=== PATIENT | male | born 1935 | race Caucasian/White ===

== ENCOUNTER 2021-03-06 14:09 | Inpatient (IN) ==
--- NOTE | 2021-03-06 15:45 | Internal Med History&Physical ---
HPI History of Present Illness Patient information: Note initiated : 03/06/21 at 3:44 pm Service Date, if different from initiated Date: [] Patient: Ralf Galicia a 85 y/o M admitted on for fall. Chief Complaint: Fall and weakness History of present illness: Mr. Galicia is a 85 year old M with history of dementia/hypothyroidism who lives with his ailing on hemodialysis.Patient presented to the ER this morning after he fell out of bed and family was unable to help him. 911 was called. Initial work-up was consistent with severe weakness/confused state. Most of the history was obtained from patient's family and EMS. Initial investigations were unremarkable including CT chest abdomen pelvis/spine and head, normal white count however elevated BUN consistent with volume depletion. COVID-19 positive without hypoxia or chest infiltrates. Patient was started on crystalloids. Despite recommendations by ER physician for observation admission family insisted on discharging patient home. Within an hour of reaching home patient again fell out of bed and presents back to the ER. Following acute evaluation hospitalist service was consulted after case management recommended hospitalization until a safe discharge plan is available. At the time of my evaluation patient is accompanied by Leydi. He is notably confused and mumbling unable to provide any history. endorses to history as above. She feels that her self and her family is in no capacity to take care of his needs and would like him to be placed at a facility. On a quick exam there is extensive excoriation along with erythema around the pannus folds/lateral thigh and back. Patient is involuntary tremor noted in both upper extremity review of systems 10 point review system was attempted but could not performed due to patient mental status PFSH PFS All Active Problems (Updated 03/06/21 @ 16:07 by Adeel Bentley DO) Fall (Acute) Candidiasis of skin (Acute) Disc disease, degenerative, cervical (Chronic) Cervical radicular pain (Chronic) Neck pain (Chronic) Tremor of right hand (Chronic) Lumbar disc disease (Chronic) Muscle spasms of neck (Chronic) Myofascial muscle pain (Chronic) Actinic keratosis (Chronic) Pain in right shoulder (Chronic) Hip pain (Chronic) Poor balance (Chronic) Tremor (Chronic) Left lumbar radiculopathy (Chronic) Nightmares (Chronic) Hypothyroidism (Chronic) Degenerative disc disease, cervical (Chronic) Anxiety disorder (Chronic) Fatigue (Chronic) Adult onset diabetes mellitus with ketoacidosis (Chronic) Right wrist pain (Chronic) Knee pain (Chronic) Vitamin D deficiency (Chronic) Irregular heart rate (Chronic) Arthralgia (Chronic) GERD (gastroesophageal reflux disease) (Chronic) Plantar fasciitis (Chronic) Constipation (Chronic) Hypertriglyceridemia (Chronic) Adenomatous colon polyp (Chronic) Barretts esophagus (Chronic) Hyperlipidemia (Chronic) Insomnia (Chronic) Hypertension (Chronic) Nocturia (Chronic) Chronic sinusitis (Chronic) Shortness of breath (Chronic) Medical History Actinic keratosis Adenomatous colon polyp Adult onset diabetes mellitus with ketoacidosis Anxiety disorder Arthralgia Barretts esophagus Cervical radicular pain Chronic sinusitis Constipation Degenerative disc disease, cervical Disc disease, degenerative, cervical Fatigue GERD (gastroesophageal reflux disease) Hip pain Hyperlipidemia Hypertension Hypertriglyceridemia Hypothyroidism Insomnia Irregular heart rate Knee pain Left lumbar radiculopathy Lumbar disc disease xr result, central lbp intermittent wo radic component. LESI not indicated. Muscle spasms of neck may rtc prn Myofascial muscle pain may rtc prn Notified pt that he will be followed by [facility] Neck pain Nightmares Nocturia Pain in right shoulder Plantar fasciitis Poor balance Right wrist pain Shortness of breath Tremor Tremor of right hand Vitamin D deficiency Surgical History History of cataract extraction (~02/2019) bilateral History of cervical spinal surgery History of colonoscopy (~2009) History of hip surgery (~07/2017) left Family History Mother Myocardial infarction, Onset Age: 74 Social History (System 03/06/21 @ 07:06 by Franklin Mccarthy) marital status: occupational status: disabled alcohol intake frequency: does not drink substance use type: does not use MEDS/ALLERGIES Home Medications and Allergies Home Medications Medication Instructions Recorded Confirmed Type levothyroxine 50 mcg tablet 50 mcg PO DAILY #90 tab 10/20/20 03/06/21 Rx donepezil 10 mg tablet 10 mg PO QDAY #30 tab 02/25/21 03/06/21 Rx hydrocodone 10 mg-acetaminophen 1 tab PO Q8HP PRN #90 tab 02/25/21 03/06/21 Rx 325 mg tablet nystatin 1 applic TOPICAL BID #30 g 03/06/21 03/06/21 Rx Allergies Allergy/AdvReac Type Severity Reaction Status Date / Time losartan AdvReac Mild Confusion Verified 03/06/21 19:53 EXAM Constitutional Vitals: Pulse Resp BP Pulse Ox 86 20 216/83 95 03/06/21 15:10 03/06/21 14:16 03/06/21 15:01 03/06/21 15:10 Confused mumbling and unresponsive to verbal commands Head normocephalic Oral cavity dry No ear or nose discharge Eye no subconjunctival pallor, movement symmetrical S1-S2 occasionally irregular Nonlabored breathing Nondistended nontender abdomen, extensive pannus fold erythema/excoriation Upper extremity resting tremor, lower extremity no cyanosis clubbing or joint swelling but extensive area of bruising lateral and posterior thigh Skin no suspicious lesion Psych unresponsive Neuro GCS 1 A/P Narrative A/P Narrative: * COVID-19 acute viral syndrome. Covid PCR positive. No indication for steroids/remdesivir. Consider monoclonal antibody * Severe weakness and fall secondary to above. Aggressive PT OT/gait and safety eval/watch bed observation admit * Volume depletion-start crystalloids and oral fluids * Acute encephalopathy secondary to acute viral illness/volume depletion/underlying dementia * Hypothyroidism continue thyroxine * DJD continue prior home medications * Prophylaxis Heparin Plan * Inpatient admit * Gait and safety eval * Crystalloids * Delirium watch * Maintain fall risk * Pre-existing medical condition management home medication Time Spent With Patient Time: Total time spent is greater than 50% in coordination of care (as documented) at patient's floor/unit and/or counseling patient:
--- NOTE | 2021-03-06 15:57 | Emergency Department Note ---
HPI General Chief complaint: Fall Stated complaint: fall Time Seen by Provider: 03/06/21 15:00 Source: EMS Mode of arrival: EMS Limitations: other History of Present Illness HPI Narrative: Patient is an 85-year-old gentleman who arrives to the emergency department by ambulance accompanied by his complaining of a fall. History is provided by the patient's and is limited by his dementia. The patient had fallen earlier today and I saw him in the emergency department. He appeared to be in a very tenuous living situation and I recommended admission to the hospital for physical therapy and occupational therapy and assessment of home health needs with his . They had declined admission at that time. At that time, he underwent a fairly comprehensive evaluation including CT scan and lab work. He returned home and within a few hours had already fallen again and could not get up. His says she saw him slide out of the bed and landed on his buttocks. She is certain he did not strike his head. He then rolled over onto his abdomen and was unable to lift himself up. His then realized that she would not be able to help him at home so she decided to bring him in for further evaluation. He is otherwise in his usual state of health. He currently has no physical complaints Related Data Home Medications Medication Instructions Recorded Confirmed aspirin 81 mg PO DAILY 05/20/15 03/06/21 sennosides 8.6 mg PO DAILY 05/20/15 03/06/21 docusate sodium 100 mg capsule 100 mg PO BID PRN 09/10/19 03/06/21 fluorouracil 5 % topical cream 1 applic TOPICAL BID 09/10/19 03/06/21 Previous Rx's Medication Instructions Recorded levothyroxine 50 mcg tablet 50 mcg PO DAILY #90 tab 10/20/20 donepezil 10 mg tablet 10 mg PO QDAY #30 tab 02/25/21 hydrocodone 10 mg-acetaminophen 1 tab PO Q8HP PRN #90 tab 02/25/21 325 mg tablet nystatin 1 applic TOPICAL BID #30 g 03/06/21 Allergies Allergy/AdvReac Type Severity Reaction Status Date / Time losartan Allergy Intermediate Confusion Verified 03/06/21 14:19 Review of Systems ROS ROS Narrative: Narrative: Limitations: ROS unobtainable due to patients medical condition [facility] Narrative Patient History Narrative: Narrative: Medical/Surgical/Family History All Active Problems (Updated 03/06/21 @ 16:07 by Adeel Bentley DO) Fall (Acute) Candidiasis of skin (Acute) Disc disease, degenerative, cervical (Chronic) Cervical radicular pain (Chronic) Neck pain (Chronic) Tremor of right hand (Chronic) Lumbar disc disease (Chronic) Muscle spasms of neck (Chronic) Myofascial muscle pain (Chronic) Actinic keratosis (Chronic) Pain in right shoulder (Chronic) Hip pain (Chronic) Poor balance (Chronic) Tremor (Chronic) Left lumbar radiculopathy (Chronic) Nightmares (Chronic) Hypothyroidism (Chronic) Degenerative disc disease, cervical (Chronic) Anxiety disorder (Chronic) Fatigue (Chronic) Adult onset diabetes mellitus with ketoacidosis (Chronic) Right wrist pain (Chronic) Knee pain (Chronic) Vitamin D deficiency (Chronic) Irregular heart rate (Chronic) Arthralgia (Chronic) GERD (gastroesophageal reflux disease) (Chronic) Plantar fasciitis (Chronic) Constipation (Chronic) Hypertriglyceridemia (Chronic) Adenomatous colon polyp (Chronic) Barretts esophagus (Chronic) Hyperlipidemia (Chronic) Insomnia (Chronic) Hypertension (Chronic) Nocturia (Chronic) Chronic sinusitis (Chronic) Shortness of breath (Chronic) Medical History Actinic keratosis Adenomatous colon polyp Adult onset diabetes mellitus with ketoacidosis Anxiety disorder Arthralgia Barretts esophagus Cervical radicular pain Chronic sinusitis Constipation Degenerative disc disease, cervical Disc disease, degenerative, cervical Fatigue GERD (gastroesophageal reflux disease) Hip pain Hyperlipidemia Hypertension Hypertriglyceridemia Hypothyroidism Insomnia Irregular heart rate Knee pain Left lumbar radiculopathy Lumbar disc disease xr result, central lbp intermittent wo radic component. LESI not indicated. Muscle spasms of neck may rtc prn Myofascial muscle pain may rtc prn Notified pt that he will be followed by [facility] Neck pain Nightmares Nocturia Pain in right shoulder Plantar fasciitis Poor balance Right wrist pain Shortness of breath Tremor Tremor of right hand Vitamin D deficiency Surgical History History of cataract extraction (~02/2019) bilateral History of cervical spinal surgery History of colonoscopy (~2009) History of hip surgery (~07/2017) left Family History Mother Myocardial infarction, Onset Age: 74 Social History Smoking Status: Never smoker Alcohol Intake Frequency: does not drink Substance Use: does not use Exam Narrative Narrative: Gen -patient is awake and alert and in no acute distress. HEENT -head is atraumatic. There is no conjunctival pallor or scleral icterus. CV -S1-S2 regular rate and rhythm. Peripheral pulses are palpable. Resp -breathing is nonlabored. Lungs are clear to auscultation bilaterally. There is no cyanosis. GI - Abdomen is soft and nontender to palpation. There is no guarding or rebound tenderness. Derm -skin is warm and dry. MSK -there are multiple superficial abrasions on the patient's upper and lower extremities without any significant underlying bony tenderness Neuro -patient does not answer many questions or follow commands consistently. He repeatedly says "I want to go home." He does have fluent speech. There is no facial asymmetry patient moves all present extremities equally. General Limitations: other Course Vital Signs Vital signs: Vital Signs Pulse Rate 93 H 03/06/21 14:16 Respiratory Rate 20 03/06/21 14:16 Blood Pressure 163/120 03/06/21 14:16 Pulse Oximetry (%) 98 03/06/21 14:16 Pulse Rate 86 03/06/21 15:10 Respiratory Rate 20 03/06/21 14:16 Blood Pressure 216/83 03/06/21 15:01 Pulse Oximetry (%) 95 03/06/21 15:10 [facility] MDM Narrative Medical decision making narrative: Patient presents following a fall. This is a relatively low level fall witnessed by his and there is minimal suspicion for any significant injury. I do not think would benefit from any further imaging at this time. His now understands the need for more home health services and does not think would be safe to take him home. Given his unsteady gait she is agreeable with the plan for admission. I discussed the patient's history examination and diagnostic findings with Dr. Mcclelland, who agrees with the plan of care and accepts admission. Discharge Plan Patient/Caregiver Discharge Instructions Pt seen by SITE SAFETY MANAGER/PA only: No Clinical Impression: Fall Qualifiers: Encounter type: initial encounter Qualified Code(s): W19.XXXA - Unspecified fall, initial encounter Patient Disposition: Xfer As Outpt/Obs ([facility]) Condition: Good Follow up with: Mihaela Thomas ARNP [Primary Care Provider] - Prescriptions: No Action levothyroxine 50 mcg tablet 50 mcg PO DAILY Qty: 90 RF: 1 docusate sodium [Colace] 100 mg capsule 100 mg PO BID PRN (Reason: Constipation) RF: 0 fluorouracil 5 % cream 1 applic TOPICAL BID RF: 0 donepezil [Aricept] 10 mg tablet 10 mg PO QDAY Qty: 30 RF: 2 hydrocodone-acetaminophen 10-325 mg tablet 1 tab PO Q8HP PRN (Reason: Pain) Qty: 90 RF: 0 aspirin 81 MG tablet,chewable 81 mg PO DAILY RF: 0 sennosides 8.6 MG capsule 8.6 mg PO DAILY RF: 0 nystatin 100,000 unit/gram ointment 1 applic topical BID Qty: 30 RF: 0
[2021-03-06] MEDS ORDERED: POLYETHYLENE GLYCOL 3350 17 GM PACKET PO PRN (17:23)
[2021-03-06] MEDS ORDERED: POTASSIUM CHLORIDE 40 MEQ in DEXTROSE 5% IN WATER 500 ML IV PRN (17:23)
[2021-03-06] MEDS ORDERED: MAGNESIUM SULFATE 2 GM/50 ML BAG IV PRN (17:23)
[2021-03-06] MEDS ORDERED: POTASSIUM CHLORIDE 20 MEQ PACKET PO PRN (17:23)
[2021-03-06] MEDS ORDERED: guaiFENesin/CODEINE 10 ML UDC PO PRN (17:23)
[2021-03-06] MEDS ORDERED: ACETAMINOPHEN 650 MG/65 ML BAG IV PRN (17:23)
[2021-03-06] MEDS ORDERED: ONDANSETRON 4 MG/2 ML VIAL IV PRN (17:23)
[2021-03-06] MEDS ORDERED: HYDROcodone/APAP 10/325MG TABLET PO PRN (17:23)
[2021-03-06] MEDS ORDERED: BISACODYL 10 MG SUPP.RECT PR PRN (17:23)
[2021-03-06] MEDS ORDERED: ONDANSETRON 4 MG ODT TABLET SL PRN (17:23)
[2021-03-06] MEDS ORDERED: DOCUSATE SODIUM 100 MG CAPSULE PO PRN (17:23)
[2021-03-06] MEDS: 0.9 % SODIUM CHLORIDE 1,000 ML IV SCH (17:45)
[2021-03-06] MEDS ORDERED: NYSTATIN CRM 1 DOSE TUBE TOPICAL SCH (21:00)
[2021-03-06] MEDS: MELATONIN 3 MG TABLET PO PRN (21:29)
[2021-03-06] MEDS: CYANOCOBALAMIN (VITAMIN B-12) 500 MCG TABLET PO SCH (21:29)
[2021-03-06] MEDS: DOCUSATE SODIUM 100 MG CAPSULE PO SCH (21:29)
[2021-03-06] MEDS: SENNOSIDES/DOCUSATE SODIUM 1 TAB TABLET PO SCH (21:29)
[2021-03-06] MEDS: HEPARIN 5,000 UNIT/ML VIAL SQ SCH (21:29)
[2021-03-06] MEDS: 0.9 % SODIUM CHLORIDE 10 ML SYRINGE IV SCH (21:30)
[2021-03-06] MEDS: FLUOROURACIL 5% TOPICAL SCH (21:30)
[2021-03-06] MEDS: ACETAMINOPHEN 325 MG TABLET PO PRN (23:13)
[2021-03-07] MEDS: 0.9 % SODIUM CHLORIDE 10 ML SYRINGE IV SCH ×3 (04:59→20:22)
[2021-03-07 06:53] LABS: Basophils # (Auto) 0.02 K/mcL (0.00-0.20); Basophils % (Auto) 0.4 % (0.0-2.0); Eosinophils # (Auto) 0.01 K/mcL (0.00-0.70); Eosinophils % (Auto) 0.2 % (0.0-7.0); Hematocrit 43.8 % (41.0-55.0); Hemoglobin 13.8 g/dL (13.5-16.5); Lymphocytes # (Auto) 0.87 K/mcL (1.50-4.80); Lymphocytes % (Auto) 18.2 % (15.0-49.0); Mean Cell Volume 97.6 fL (80.0-100.0); Mean Corpuscular HGB Conc 31.5 g/dL (31.0-36.0); Mean Platelet Volume 11.9 fL (7.4-10.4); Monocytes # (Auto) 0.76 K/mcL (0.10-0.90); Monocytes % (Auto) 15.9 % (1.0-12.0); Neutrophils % (Auto) 65.3 % (38.0-78.0); Platelet Count 121 K/mcL (140-440); RBC 4.49 M/mcL (4.50-5.90); Red Cell Distribution Width 14.2 % (11.5-14.5); WBC 4.8 K/mcL (4.5-11.0)
[2021-03-07] MEDS ORDERED: LORazepam 2 MG/ML VIAL IV ONE (07:00)
[2021-03-07] MEDS ORDERED: VANCOMYCIN PER PHARMACY IV SCH (07:07)
[2021-03-07 07:41] LABS: ALT/SGPT 14 U/L (<40); AST/SGOT 34 U/L (<40); Albumin 3.5 gm/dL (3.2-5.2); Albumin/Globulin Ratio 1.2 (1.0-2.3); Alkaline Phosphatase 63 U/L (39-117); Bilirubin,Direct < 0.2 mg/dL (0-0.3); Bilirubin,Total 0.4 mg/dL (0.1-1.0); Blood Urea Nitrogen 36 mg/dL (8-23); Calcium 8.7 mg/dL (8.6-10.4); Carbon Dioxide 20 mmol/L (22-30); Chloride 108 mmol/L (96-108); Globulin 2.9 gm/dL (2.2-3.7); Glomerular Filtration Rate 69; Glucose 93 mg/dL (70-105); Lactate Dehydrogenase 318 U/L (135-225); Phosphorous 3.6 mg/dL (2.5-4.5); Triglycerides 51 mg/dL (<150); Uric Acid 5.6 mg/dL (2.5-8.0)
[2021-03-07] MEDS: HEPARIN 5,000 UNIT/ML VIAL SQ SCH ×2 (07:44→20:21)
[2021-03-07] MEDS: ASPIRIN 81 MG TAB.CHEW PO SCH (07:44)
[2021-03-07] MEDS: LEVOTHYROXINE 50 MCG TABLET PO SCH (07:45)
[2021-03-07] MEDS: FOLIC ACID 1 MG TABLET PO SCH (07:45)
[2021-03-07] MEDS: DONEPEZIL 10 MG TABLET PO SCH (07:45)
[2021-03-07] MEDS: DOCUSATE SODIUM 100 MG CAPSULE PO SCH ×2 (07:45→20:21)
[2021-03-07] MEDS: THIAMINE 100 MG TABLET PO SCH (07:45)
[2021-03-07] MEDS: CYANOCOBALAMIN (VITAMIN B-12) 500 MCG TABLET PO SCH ×2 (07:45→20:21)
[2021-03-07] MEDS: MULTIVIT,THER IRON,CA,FA & MIN 1 TABLET PO SCH (07:45)
[2021-03-07] MEDS: FLUOROURACIL 5% TOPICAL SCH ×2 (08:38→20:22)
[2021-03-07] MEDS: VANCOMYCIN 1,500 MG in 0.9 % SODIUM CHLORIDE 500 ML IV SCH (08:47)
[2021-03-07] MEDS: NYSTATIN TOPICAL SCH ×2 (08:47→20:22)
[2021-03-07] MEDS ORDERED: SENNOSIDES 8.6 MG PO SCH (09:00)
--- NOTE | 2021-03-07 10:34 | Internal Med Progress Note ---
SUBJECTIVE Subjective Patient information: Note initiated : 03/07/21 at 10:30 am Service Date, if different from initiated Date: [] Patient: Ralf Galicia a 85 y/o M admitted on 03/06/21 for fall. Chief Complaint: [] Interval history: Mr. Galicia is a 85 year old M with history of dementia/hypothyroidism who lives with his ailing on hemodialysis.Patient presented to the ER this morning after he fell out of bed and family was unable to help him. 911 was called. Initial work-up was consistent with severe weakness/confused state. Most of the history was obtained from patient's family and EMS. Initial investigations were unremarkable including CT chest abdomen pelvis/spine and head, normal white count however elevated BUN consistent with volume depletion. COVID-19 positive without hypoxia or chest infiltrates. Patient was started on crystalloids. Despite recommendations by ER physician for observation admission family insisted on discharging patient home. Within an hour of reaching home patient again fell out of bed and presents back to the ER. Following acute evaluation hospitalist service was consulted after case management recommended hospitalization until a safe discharge plan is available. At the time of my evaluation patient is accompanied by Leydi. He is notably confused and mumbling unable to provide any history. endorses to history as above. She feels that her self and her family is in no capacity to take care of his needs and would like him to be placed at a facility. On a quick exam there is extensive excoriation along with erythema around the pannus folds/lateral thigh and back. Patient is involuntary tremor noted in both upper extremity 03/07-2/2+ blood culture for gram-positive cocci. Repeat surveillance cultures pending. Echocardiogram ordered. ID consulted. Started vancomycin. Covid positive. Remains encephalopathic and confused. Renal function improving. Constitutional Vitals: Vital Signs Temp Pulse Resp BP Pulse Ox 100.1 F H 78 13 147/69 93 03/07/21 07:25 03/07/21 08:32 03/07/21 08:32 03/07/21 07:25 03/07/21 08:32 Period Temp Pulse Resp BP Sys/Truong Pulse Ox Last 24 Hr 98.2 F-100.8 F 71-97 13-22 102-239/55-120 93-98 Intake and Output 03/06/21 03/07/21 03/07/21 21:59 05:59 13:59 Intake Total 240 400 Output Total 251 51 52 Balance -11 349 -52 Weight 103.561 kg remains confused Anxious Nonlabored breathing Multiple areas of bruising thigh/lower back Intake & Output: Intake & Output 03/06/21 03/07/21 03/07/21 21:59 05:59 13:59 Intake Total 240 400 Output Total 251 51 52 Balance -11 349 -52 Weight 103.561 kg Intake: Oral 240 400 Output: Void Amount 250 50 50 # of times incontinent of urine 1 1 2 Other: Meal Dinner Percent of Meal Consumed 100% Urine Appearance Clear Sediment Clear Urine Color Straw Straw Dark Yellow Urine Odor Strong Stool Size Large Stool Color Brown Stool Consistency Formed # Voids 1 # Bowel Movements 1 OBJ DATA Labs CBC & Chem 7: 03/07/21 06:00 03/07/21 06:00 Labs: Abnormal Lab Results 03/07/21 03/07/21 06:00 06:00 RBC 4.49 L Plt Count 121 L MPV 11.9 H Yuba % (Auto) 15.9 H Lymph # (Auto) 0.87 L Carbon Dioxide 20 L BUN 36 H Lactate Dehydrogenase 318 H Meds: Medications Acetaminophen (Acetaminophen 325 Mg Tablet) 650 mg PO Q4-6HP PRN; Protocol PRN Reason: Per Pain Protocol/Fever > 101 Last Admin: 03/06/21 23:13 Dose: 650 mg Documented by: Hydrocodone Bitart/Acetaminophen (Hydrocodone/Apap 10/325mg Tablet) 1 tab PO Q8HP PRN; Protocol PRN Reason: Pain Aspirin (Aspirin 81 Mg Tab.Chew) 81 mg PO DAILY [facility] Last Admin: 03/07/21 07:44 Dose: 81 mg Documented by: Bisacodyl (Bisacodyl 10 Mg Supp.Rect) 10 mg KS Q2-3DAYS PRN PRN Reason: Constipation Last Admin: 03/06/21 23:14 Dose: 10 mg Documented by: Cyanocobalamin (Cyanocobalamin (Vitamin B-12) 500 Mcg Tablet) 1,000 mcg PO BID [facility] Stop: 03/11/21 09:01 Last Admin: 03/07/21 07:45 Dose: 1,000 mcg Documented by: Docusate Sodium (Docusate Sodium 100 Mg Capsule) 100 mg PO BID [facility] Last Admin: 03/07/21 07:45 Dose: 100 mg Documented by: Donepezil HCl (Donepezil 10 Mg Tablet) 10 mg PO QDAY [facility] Last Admin: 03/07/21 07:45 Dose: 10 mg Documented by: Folic Acid (Folic Acid 1 Mg Tablet) 1 mg PO DAILY [facility] Last Admin: 03/07/21 07:45 Dose: 1 mg Documented by: Guaifenesin/Codeine Phosphate (Guaifenesin/Codeine 10 Ml Udc) 10 ml PO Q4HP PRN PRN Reason: Cough Heparin Sodium (Porcine) (Heparin 5,000 Unit/Ml Vial) 5,000 unit SQ Q12 [facility] Last Admin: 03/07/21 07:44 Dose: 5,000 unit Documented by: Potassium Chloride 40 meq/ (Dextrose) 520 mls @ 130 mls/hr IV UD PRN PRN Reason: K+ = or < 3.5 Acetaminophen (Ofirmev) 650 mg in 65 mls @ 130 mls/hr IV Q6HP PRN; Protocol PRN Reason: Per Pain Protocol/Fever > 101 Magnesium Sulfate (Magnesium Sulfate) 2 gm in 50 mls @ 50 mls/hr IV UD PRN PRN Reason: MG = or < 1.7 Sodium Chloride (Sodium Chloride 0.9%) 1,000 mls @ 50 mls/hr IV .Q20H [facility] Stop: 03/09/21 05:22 Last Admin: 03/06/21 17:45 Dose: 50 mls/hr Documented by: Vancomycin HCl 1,500 mg/ (Sodium Chloride) 500 mls @ 333.3 mls/hr IV Q24H [facility] Last Admin: 03/07/21 08:47 Dose: 333.3 mls/hr Documented by: Iron Carb/Multivit/Amorita/Folic Acid (Multivit,Ther Iron,Ca,Fa & Min 1 Tablet) 1 tab PO DAILY [facility] Last Admin: 03/07/21 07:45 Dose: 1 tab Documented by: Levothyroxine Sodium (Levothyroxine 50 Mcg Tablet) 50 mcg PO QAMAC [facility] Last Admin: 03/07/21 07:45 Dose: 50 mcg Documented by: Melatonin (Melatonin 3 Mg Tablet) 3 mg PO HSP PRN PRN Reason: Insomnia Last Admin: 03/06/21 21:29 Dose: 3 mg Documented by: Ondansetron HCl (Ondansetron 4 Mg Odt Tablet) 4 mg SL Q4-6HP PRN; Protocol PRN Reason: Nausea And Vomiting Ondansetron HCl (Ondansetron 4 Mg/2 Ml Vial) 4 mg IV Q4-6HP PRN; Protocol PRN Reason: Nausea And Vomiting Fluorouracil 5 % (Cream) 1 dose TOPICAL BID [facility] Last Admin: 03/07/21 08:38 Dose: Not Given Documented by: Nystatin Ointment 1 (Dose Tube) 1 dose TOPICAL BID [facility] Last Admin: 03/07/21 08:47 Dose: 1 dose Documented by: Polyethylene Glycol (Polyethylene Glycol 3350 17 Gm Packet) 17 gm PO DAILYP PRN PRN Reason: Constipation Potassium Chloride (Potassium Chloride 20 Meq Packet) 40 meq PO DAILYP PRN PRN Reason: K+ < 3.5 Senna/Docusate Sodium (Sennosides/Docusate Sodium 1 Tab Tablet) 1 tab PO HS [facility] Last Admin: 03/06/21 21:29 Dose: 1 tab Documented by: Sodium Chloride (0.9 % Sodium Chloride 10 Ml Syringe) 10 ml IV Q8 [facility] Last Admin: 03/07/21 04:59 Dose: Not Given Documented by: Thiamine HCl (Thiamine 100 Mg Tablet) 100 mg PO DAILY [facility] Last Admin: 03/07/21 07:45 Dose: 100 mg Documented by: Vancomycin HCl (Vancomycin Per Pharmacy) 1 order IV UD [facility]; Protocol A/P Narrative A/P Narrative: * COVID-19 acute viral syndrome. Covid PCR positive. No indication for steroids/remdesivir. Consider monoclonal antibody * Gram-positive bacteremia-surveillance cultures/source evaluation/vancomycin/echocardiogram/ID consult * severe weakness and fall secondary to above. Aggressive PT OT/gait and safety eval/watch bed observation admit * Mild PEGGY secondary to volume depletion-improving on crystalloids * Acute encephalopathy secondary to acute viral illness/volume depletion/underlying dementia * Hypothyroidism continue thyroxine * DJD continue prior home medications * Prophylaxis Heparin Plan * Surveillance cultures/echocardiogram/ID consult/source evaluation * Therapies as indicated * Maintain fall risk * Pre-existing medical condition management home medication Time Spent With Patient Time: Total time spent is greater than 50% in coordination of care (as documented) at patient's floor/unit and/or counseling patient: QUALITY VTE Deep Vein Thrombosis/Pulmonary Embolism Present on Admission: No
[2021-03-07] MEDS: 0.9 % SODIUM CHLORIDE 1,000 ML IV SCH (15:27)
[2021-03-07] MEDS: LORazepam 0.5 MG TABLET PO PRN (15:40)
--- NOTE | 2021-03-07 18:14 | Infectious Disease Consult ---
HPI Data of Consult Primary Care Provider: Mihaela Thomas Consult Narrative Patient Information: Note initiated : 03/07/21 at 6:12 pm Service Date, if different from initiated Date: [] Patient: Ralf Galicia 85 y/o M admitted on 03/06/21 for fall. Chief Complaint: [] Ralf is an 85-year-old man who was admitted yesterday March 06 for altered mental status. He has a history of dementia. T-max yesterday 100.8 T-max today is 10 0.1. Currently 99.6. Vancomycin was initiated today as blood cultures from yesterday turn positive. He has had 2 bottles positive for gram-positive cocci in clusters. I am not able to obtain any history from him. I have reviewed with nursing staff. Additionally, he was found to be Covid positive. No previous vaccination. SARS PCR + March 06. His admit white count was 7.6. 87 segs 3% lymphs. UA revealed 1 red cell 2 white cells and 1 squamous epithelial cells. Glucose [address] of the head abdomen pelvis was completed. CT of the chest abdomen pelvis identified renal cysts, sigmoid diverticulosis and glenohumeral degeneration. Diabetes is also listed in his history. An echocardiogram has been ordered. Dr. Oliva asked for consultation to assist with antibiotic recommendations. cc:: CC: Danny Mcclelland Review of Systems Review of systems: Unable to be obtained. PFSH PFSH All Active Problems (Updated 03/07/21 @ 18:30 by Jerry Bates MD) COVID-19 determined by clinical diagnostic criteria (Acute) Dementia (Acute) Bacteremia (Acute) Fever (Acute) Fall (Acute) Candidiasis of skin (Acute) Disc disease, degenerative, cervical (Chronic) Cervical radicular pain (Chronic) Neck pain (Chronic) Tremor of right hand (Chronic) Lumbar disc disease (Chronic) Muscle spasms of neck (Chronic) Myofascial muscle pain (Chronic) Actinic keratosis (Chronic) Pain in right shoulder (Chronic) Hip pain (Chronic) Poor balance (Chronic) Tremor (Chronic) Left lumbar radiculopathy (Chronic) Nightmares (Chronic) Hypothyroidism (Chronic) Degenerative disc disease, cervical (Chronic) Anxiety disorder (Chronic) Fatigue (Chronic) Adult onset diabetes mellitus with ketoacidosis (Chronic) Right wrist pain (Chronic) Knee pain (Chronic) Vitamin D deficiency (Chronic) Irregular heart rate (Chronic) Arthralgia (Chronic) GERD (gastroesophageal reflux disease) (Chronic) Plantar fasciitis (Chronic) Constipation (Chronic) Hypertriglyceridemia (Chronic) Adenomatous colon polyp (Chronic) Barretts esophagus (Chronic) Hyperlipidemia (Chronic) Insomnia (Chronic) Hypertension (Chronic) Nocturia (Chronic) Chronic sinusitis (Chronic) Shortness of breath (Chronic) Medical History Actinic keratosis Adenomatous colon polyp Adult onset diabetes mellitus with ketoacidosis Anxiety disorder Arthralgia Barretts esophagus Cervical radicular pain Chronic sinusitis Constipation Degenerative disc disease, cervical Disc disease, degenerative, cervical Fatigue GERD (gastroesophageal reflux disease) Hip pain Hyperlipidemia Hypertension Hypertriglyceridemia Hypothyroidism Insomnia Irregular heart rate Knee pain Left lumbar radiculopathy Lumbar disc disease xr result, central lbp intermittent wo radic component. LESI not indicated. Muscle spasms of neck may rtc prn Myofascial muscle pain may rtc prn Notified pt that he will be followed by [facility] Neck pain Nightmares Nocturia Pain in right shoulder Plantar fasciitis Poor balance Right wrist pain Shortness of breath Tremor Tremor of right hand Vitamin D deficiency Surgical History History of cataract extraction (~02/2019) bilateral History of cervical spinal surgery History of colonoscopy (~2009) History of hip surgery (~07/2017) left Family History Mother Myocardial infarction, Onset Age: 74 Social History (System 03/06/21 @ 07:06 by Franklin Mccarthy) marital status: occupational status: disabled alcohol intake frequency: does not drink substance use type: does not use MEDS/ALLERGIES Home Medications and Allergies Home Medications Medication Instructions Recorded Confirmed Type levothyroxine 50 mcg tablet 50 mcg PO DAILY #90 tab 10/20/20 03/06/21 Rx donepezil 10 mg tablet 10 mg PO QDAY #30 tab 02/25/21 03/06/21 Rx hydrocodone 10 mg-acetaminophen 1 tab PO Q8HP PRN #90 tab 02/25/21 03/06/21 Rx 325 mg tablet nystatin 1 applic TOPICAL BID #30 g 03/06/21 03/06/21 Rx Allergies Allergy/AdvReac Type Severity Reaction Status Date / Time losartan AdvReac Mild Confusion Verified 03/06/21 19:53 Physical Examination Vital Signs Vital signs: Current temp 99.6. 100.1 earlier today 100.8 yesterday. Temp Pulse Resp BP Pulse Ox 99.6 F H 82 16 129/47 96 03/07/21 15:27 03/07/21 15:27 03/07/21 15:27 03/07/21 15:27 03/07/21 15:27 Additional Exam Additional exam: General: Laying in bed. He does not arouse. HEENT: Eyes closed. Neck seems mildly stiff. No masses appreciated. Pulmonary: Clear anteriorly. Heart: Regular rate and rhythm without murmur. Abdomen: Soft obese can candidal appearing rash in the pannus crease and groin area. Extremities: Lower extremity varicosities. 2+ edema in the left leg 1+ edema in the right leg. Right knee with well-healed surgical scar. He has hand tremors. Results Laboratory Findings CBC and BMP: 03/07/21 06:00 03/07/21 06:00 Abnormal lab findings: Abnormal Labs 03/07/21 03/07/21 06:00 06:00 RBC 4.49 L Plt Count 121 L MPV 11.9 H Lucas % (Auto) 15.9 H Lymph # (Auto) 0.87 L Carbon Dioxide 20 L BUN 36 H Lactate Dehydrogenase 318 H Microbiology: Microbiology 03/06/21 16:16 Nasopharynx SARS-CoV-2, Influenza & RSV (PCR) - Final A/P Assessment and plan (1) Fever: Status: Acute Comment: Ralf is a 85-year-old man with dementia. He was admitted on March 06 with altered mental status. I am not sure on what his baseline level of mental status is. He was not interactive for me today. T-max yesterday 100.8 and blood cultures have turned positive for gram-positive cocci in clusters. Source unknown at this time. He does have significant rash under pannus and groin region consistent with candidiasis. Certainly staph or strep could originate from this region. He has an abrasion over the right lateral hip that does not appear cellulitic but does appear bruised. Vancomycin started today. Pharmacy follow ing levels. Further recommendations to follow depending on culture ID and sensitivity. Repeat blood cultures tomorrow. If staph aureus identified, minimum of 2 weeks of IV therapy. (2) Bacteremia: Status: Acute Comment: Follow-up on blood culture ID and sensitivity. Transthoracic echocardiogram pen ding. Source seems more likely from skin. (3) Candidiasis of skin: Status: Acute Comment: Topical therapy is applied. Consider oral Diflucan therapy if lack of response with topical treatment. (4) Dementia: Status: Acute Comment: Question baseline level. (5) COVID-19 determined by clinical diagnostic criteria: Status: Acute Comment: No previous vaccination. PCR diagnostic test completed. The PCR test can be positive for up to 90 days post exposure. Currently, he is not requiring supplemental O2. Chest CT scan did not identify infiltrate. Unknown if testing represents previous disease or current asymptomatic infection. He is currently in isolation appropriately. Time Spent With Patient Time: Total time spent is greater than 50% in coordination of care (as documented) at patient's floor/unit and/or counseling patient:
[2021-03-07] MEDS: SENNOSIDES/DOCUSATE SODIUM 1 TAB TABLET PO SCH (20:21)
[2021-03-08] MEDS: 0.9 % SODIUM CHLORIDE 10 ML SYRINGE IV SCH ×3 (04:03→20:50)
[2021-03-08 06:27] LABS: Basophils # (Auto) 0.03 K/mcL (0.00-0.20); Basophils % (Auto) 0.4 % (0.0-2.0); Eosinophils # (Auto) 0.15 K/mcL (0.00-0.70); Eosinophils % (Auto) 2.1 % (0.0-7.0); Hematocrit 42.9 % (41.0-55.0); Hemoglobin 13.8 g/dL (13.5-16.5); Lymphocytes # (Auto) 1.45 K/mcL (1.50-4.80); Lymphocytes % (Auto) 20.1 % (15.0-49.0); Mean Cell Volume 97.9 fL (80.0-100.0); Mean Corpuscular HGB Conc 32.2 g/dL (31.0-36.0); Mean Platelet Volume 12.5 fL (7.4-10.4); Monocytes % (Auto) 9.7 % (1.0-12.0); Neutrophils % (Auto) 67.7 % (38.0-78.0); Platelet Count 85 K/mcL (140-440); RBC 4.38 M/mcL (4.50-5.90); Red Cell Distribution Width 14.3 % (11.5-14.5); WBC 7.2 K/mcL (4.5-11.0)
[2021-03-08 06:57] LABS: ALT/SGPT 14 U/L (<40); AST/SGOT 32 U/L (<40); Albumin 3.4 gm/dL (3.2-5.2); Albumin/Globulin Ratio 1.2 (1.0-2.3); Alkaline Phosphatase 58 U/L (39-117); Bilirubin,Direct < 0.2 mg/dL (0-0.3); Bilirubin,Total 0.3 mg/dL (0.1-1.0); Blood Urea Nitrogen 22 mg/dL (8-23); Calcium 8.3 mg/dL (8.6-10.4); Carbon Dioxide 22 mmol/L (22-30); Chloride 108 mmol/L (96-108); Globulin 2.8 gm/dL (2.2-3.7); Glomerular Filtration Rate 78; Glucose 88 mg/dL (70-105); Lactate Dehydrogenase 316 U/L (135-225); Phosphorous 2.6 mg/dL (2.5-4.5); Triglycerides 58 mg/dL (<150); Uric Acid 4.8 mg/dL (2.5-8.0)
[2021-03-08] MEDS: LEVOTHYROXINE 50 MCG TABLET PO SCH (07:03)
[2021-03-08] MEDS: LORazepam 0.5 MG TABLET PO PRN (07:03)
[2021-03-08] MEDS: FLUOROURACIL 5% TOPICAL SCH (07:43)
[2021-03-08] MEDS: NYSTATIN TOPICAL SCH ×2 (08:56→20:50)
[2021-03-08] MEDS: VANCOMYCIN 1,500 MG in 0.9 % SODIUM CHLORIDE 500 ML IV SCH (08:56)
[2021-03-08] MEDS: HEPARIN 5,000 UNIT/ML VIAL SQ SCH (08:56)
[2021-03-08] MEDS: DONEPEZIL 10 MG TABLET PO SCH ×2 (09:00→09:07)
[2021-03-08] MEDS: THIAMINE 100 MG TABLET PO SCH ×2 (09:00→09:08)
[2021-03-08] MEDS: FOLIC ACID 1 MG TABLET PO SCH ×2 (09:01→09:07)
[2021-03-08] MEDS: ASPIRIN 81 MG TAB.CHEW PO SCH ×2 (09:01→09:07)
[2021-03-08] MEDS: CYANOCOBALAMIN (VITAMIN B-12) 500 MCG TABLET PO SCH ×3 (09:01→20:50)
[2021-03-08] MEDS: MULTIVIT,THER IRON,CA,FA & MIN 1 TABLET PO SCH ×2 (09:01→09:07)
[2021-03-08] MEDS: DOCUSATE SODIUM 100 MG CAPSULE PO SCH ×3 (09:01→20:50)
--- NOTE | 2021-03-08 10:27 | Internal Med Progress Note ---
SUBJECTIVE Subjective Patient information: Note initiated : 03/08/21 at 10:25 am Service Date, if different from initiated Date: [] Patient: Ralf Galicia a 85 y/o M admitted on 03/06/21 for fall. Chief Complaint: [] Interval history: Mr. Galicia is a 85 year old M with history of dementia/hypothyroidism who lives with his ailing on hemodialysis.Patient presented to the ER this morning after he fell out of bed and family was unable to help him. 911 was called. Initial work-up was consistent with severe weakness/confused state. Most of the history was obtained from patient's family and EMS. Initial investigations were unremarkable including CT chest abdomen pelvis/spine and head, normal white count however elevated BUN consistent with volume depletion. COVID-19 positive without hypoxia or chest infiltrates. Patient was started on crystalloids. Despite recommendations by ER physician for observation admission family insisted on discharging patient home. Within an hour of reaching home patient again fell out of bed and presents back to the ER. Following acute evaluation hospitalist service was consulted after case management recommended hospitalization until a safe discharge plan is available. At the time of my evaluation patient is accompanied by Leydi. He is notably confused and mumbling unable to provide any history. endorses to history as above. She feels that her self and her family is in no capacity to take care of his needs and would like him to be placed at a facility. On a quick exam there is extensive excoriation along with erythema around the pannus folds/lateral thigh and back. Patient is involuntary tremor noted in both upper extremity 03/07-11/30+ blood culture for gram-positive cocci. Repeat surveillance cultures pending. Echocardiogram ordered. ID consulted. Started vancomycin. Covid positive. Remains encephalopathic and confused. Renal function improving. 03/08-patient remains confused and agitated requiring Ativan. Requiring 3 person assist. Platelets downtrending. Switch to Arixtra. White count 7.2. Currently on room air. Tolerating diet. ID consulted. Await echocardiogram. Constitutional Vitals: Vital Signs Temp Pulse Resp BP Pulse Ox 99.7 F H 75 14 134/41 93 03/08/21 07:33 03/08/21 07:33 03/08/21 07:33 03/08/21 07:33 03/08/21 07:33 Period Temp Pulse Resp BP Sys/Truong Pulse Ox Last 24 Hr 98.9 F-100.1 F 75-94 14-20 126-178/41-80 93-96 Intake and Output 03/07/21 03/08/21 03/08/21 21:59 05:59 13:59 Intake Total 1100 120 Output Total 1 3 2 Balance 1099 117 -2 Weight 103.561 kg Anxious, agitated Nonlabored breathing No lymphedema Intake & Output: Intake & Output 03/07/21 03/08/21 03/08/21 21:59 05:59 13:59 Intake Total 1100 120 Output Total 1 3 2 Balance 1099 117 -2 Weight 103.561 kg Intake: Oral 1100 120 Output: # of times incontinent of urine 1 3 2 Other: Meal Dinner Breakfast Percent of Meal Consumed 50% Refused Feeding Ability Assist with Tray Set Up Total Assistance Nourishment/Supplement name applesauce patient spitting out breakfast and covering his face with blankets OBJ DATA Labs CBC & Chem 7: 03/08/21 05:37 03/08/21 05:37 Labs: Abnormal Lab Results 03/08/21 03/08/21 03/07/21 05:37 05:37 06:00 RBC 4.38 L Plt Count 85 L MPV 12.5 H Hall % (Auto) Lymph # (Auto) 1.45 L Carbon Dioxide 20 L Anion Gap 6.0 L BUN 36 H Calcium 8.3 L Lactate Dehydrogenase 316 H 318 H 03/07/21 06:00 RBC 4.49 L Plt Count 121 L MPV 11.9 H Hall % (Auto) 15.9 H Lymph # (Auto) 0.87 L Carbon Dioxide Anion Gap BUN Calcium Lactate Dehydrogenase Meds: Medications Acetaminophen (Acetaminophen 325 Mg Tablet) 650 mg PO Q4-6HP PRN; Protocol PRN Reason: Per Pain Protocol/Fever > 101 Last Admin: 03/06/21 23:13 Dose: 650 mg Documented by: Hydrocodone Bitart/Acetaminophen (Hydrocodone/Apap 10/325mg Tablet) 1 tab PO Q8HP PRN; Protocol PRN Reason: Pain Aspirin (Aspirin 81 Mg Tab.Chew) 81 mg PO DAILY DEYANIRA Last Admin: 03/08/21 09:07 Dose: Not Given Documented by: Bisacodyl (Bisacodyl 10 Mg Supp.Rect) 10 mg AL Q2-3DAYS PRN PRN Reason: Constipation Last Admin: 03/06/21 23:14 Dose: 10 mg Documented by: Cyanocobalamin (Cyanocobalamin (Vitamin B-12) 500 Mcg Tablet) 1,000 mcg PO BID [facility] Stop: 03/11/21 09:01 Last Admin: 03/08/21 09:07 Dose: Not Given Documented by: Docusate Sodium (Docusate Sodium 100 Mg Capsule) 100 mg PO BID [facility] Last Admin: 03/08/21 09:07 Dose: Not Given Documented by: Donepezil HCl (Donepezil 10 Mg Tablet) 10 mg PO QDAY [facility] Last Admin: 03/08/21 09:07 Dose: Not Given Documented by: Folic Acid (Folic Acid 1 Mg Tablet) 1 mg PO DAILY [facility] Last Admin: 03/08/21 09:07 Dose: Not Given Documented by: Fondaparinux (Fondaparinux Sodium 2.5 Mg/0.5 Ml Syringe) 2.5 mg SQ DAILY [facility] Guaifenesin/Codeine Phosphate (Guaifenesin/Codeine 10 Ml Udc) 10 ml PO Q4HP PRN PRN Reason: Cough Potassium Chloride 40 meq/ (Dextrose) 520 mls @ 130 mls/hr IV UD PRN PRN Reason: K+ = or < 3.5 Acetaminophen (Ofirmev) 650 mg in 65 mls @ 130 mls/hr IV Q6HP PRN; Protocol PRN Reason: Per Pain Protocol/Fever > 101 Magnesium Sulfate (Magnesium Sulfate) 2 gm in 50 mls @ 50 mls/hr IV UD PRN PRN Reason: MG = or < 1.7 Sodium Chloride (Sodium Chloride 0.9%) 1,000 mls @ 50 mls/hr IV .Q20H [facility] Stop: 03/09/21 05:22 Last Admin: 03/07/21 15:27 Dose: 50 mls/hr Documented by: Vancomycin HCl 1,500 mg/ (Sodium Chloride) 500 mls @ 333.3 mls/hr IV Q24H [facility] Last Admin: 03/08/21 08:56 Dose: 333.3 mls/hr Documented by: Iron Carb/Multivit/[employer]/Folic Acid (Multivit,Ther Iron,Ca,Fa & Min 1 Tablet) 1 tab PO DAILY [facility] Last Admin: 03/08/21 09:07 Dose: Not Given Documented by: Levothyroxine Sodium (Levothyroxine 50 Mcg Tablet) 50 mcg PO QAMAC [facility] Last Admin: 03/08/21 07:03 Dose: 50 mcg Documented by: Lorazepam (Lorazepam 0.5 Mg Tablet) 0.5 mg PO Q6HP PRN PRN Reason: ANXIETY/SEDATION Last Admin: 03/08/21 07:03 Dose: 0.5 mg Documented by: Melatonin (Melatonin 3 Mg Tablet) 3 mg PO HSP PRN PRN Reason: Insomnia Last Admin: 03/06/21 21:29 Dose: 3 mg Documented by: Ondansetron HCl (Ondansetron 4 Mg Odt Tablet) 4 mg SL Q4-6HP PRN; Protocol PRN Reason: Nausea And Vomiting Ondansetron HCl (Ondansetron 4 Mg/2 Ml Vial) 4 mg IV Q4-6HP PRN; Protocol PRN Reason: Nausea And Vomiting Nystatin Ointment 1 (Dose Tube) 1 dose TOPICAL BID [facility] Last Admin: 03/08/21 08:56 Dose: 1 dose Documented by: Polyethylene Glycol (Polyethylene Glycol 3350 17 Gm Packet) 17 gm PO DAILYP PRN PRN Reason: Constipation Potassium Chloride (Potassium Chloride 20 Meq Packet) 40 meq PO DAILYP PRN PRN Reason: K+ < 3.5 Senna/Docusate Sodium (Sennosides/Docusate Sodium 1 Tab Tablet) 1 tab PO HS [facility] Last Admin: 03/07/21 20:21 Dose: 1 tab Documented by: Sodium Chloride (0.9 % Sodium Chloride 10 Ml Syringe) 10 ml IV Q8 [facility] Last Admin: 03/08/21 04:03 Dose: Not Given Documented by: Thiamine HCl (Thiamine 100 Mg Tablet) 100 mg PO DAILY [facility] Last Admin: 03/08/21 09:08 Dose: Not Given Documented by: Vancomycin HCl (Vancomycin Per Pharmacy) 1 order IV UD [facility]; Protocol A/P Narrative A/P Narrative: * COVID-19 acute viral syndrome. Covid PCR positive. No indication for steroids/remdesivir. Consider monoclonal antibody * Gram-positive bacteremia-surveillance cultures/source evaluation/vancomycin/echocardiogram/ID consult * Acute delirium secondary to COVID-19. * severe weakness and fall secondary to above. Aggressive PT OT/gait and safety eval/watch bed observation admit * Mild PEGGY secondary to volume depletion resolved on crystalloids * Acute encephalopathy secondary to acute viral illness/volume depletion/underlying dementia * Hypothyroidism continue thyroxine * DJD continue prior home medications * Prophylaxis Heparin Plan * Await echocardiogram/ID consult/source evaluation * Delirium watch/avoid hypnotics, bright lights and frequent reorientation * Maintain fall risk * Pre-existing medical condition management home medication * = Time Spent With Patient Time: Total time spent is greater than 50% in coordination of care (as documented) at patient's floor/unit and/or counseling patient: QUALITY VTE Deep Vein Thrombosis/Pulmonary Embolism Present on Admission: No
--- NOTE | 2021-03-08 12:07 | Internal Med Progress Note ---
SUBJECTIVE Subjective Patient information: Note initiated : 03/09/21 at 11:57 am Service Date, if different from initiated Date: [] Patient: Ralf Galicia a 85 y/o M admitted on 03/06/21 for fall. Chief Complaint: [] Interval history: Mr. Galicia is a 85 year old M with history of dementia/hypothyroidism who lives with his ailing on hemodialysis. Patient presented to the ER this morning he fell out of bed and family was unable to help him. 911 was called. Initial work-up was consistent with severe weakness/confused state. Most of the history was obtained from patient's family and EMS. Initial investigations were unremarkable including CT chest abdomen pelvis/spine and head, normal white count however elevated BUN consistent with volume depletion. COVID-19 positive without hypoxia or chest infiltrates. Patient was started on crystalloids. Despite recommendations by ER physician for observation admission family insisted on discharging patient home. Within an hour of reaching home patient again fell out of bed and presents back to the ER. Following acute evaluation hospitalist service was consulted after case management recommended hospitalization until a safe discharge plan is available. He is notably confused and mumbling unable to provide any history. endorses to history as above. She felt that her self and her family is in no capacity to take care of his needs and would like him to be placed at a facility. On a quick exam there is extensive excoriation along with erythema around the pannus folds/lateral thigh and back. Patient is involuntary tremor noted in both upper extremity 03/07-2/2+ blood culture for gram-positive cocci. Repeat surveillance cultures pending. Echocardiogram ordered. ID consulted. Started vancomycin. Covid positive. Remains encephalopathic and confused. Renal function improving. 03/08-patient remains confused and agitated requiring Ativan. Requiring 3 person assist. Platelets downtrending. Switch to Arixtra. White count 7.2. Currently on room air. Tolerating diet. ID consulted. Await echocardiogram. 03/09-started low dose seroquel for agitation, discontinued ativan. Agitation improved after receiving seroquel. Awaiting culture results and ECHO. Head: Atraumatic, normal inspection. Eyes: normal appearance, no scleral icterus. Neck: full ROM Respiratory: no respiratory distress. Cardiovascular: normal rate and rhythm, S1, S2. GI/Abdominal: soft, nontender, no guarding. Extremities: full range of motion, nontender. Neurological: CN II-XII intact, intact motor, intact sensation. Psychiatric: normal mood. Skin: warm, normal color Constitutional Vitals: Vital Signs Temp Pulse Resp BP Pulse Ox 99.7 F H 75 14 134/41 93 03/08/21 07:33 03/08/21 07:33 03/08/21 07:33 03/08/21 07:33 03/08/21 07:33 Period Temp Pulse Resp BP Sys/Truong Pulse Ox Last 24 Hr 98.9 F-100.1 F 75-94 14-20 129-178/41-77 93-96 Intake and Output 03/07/21 03/08/21 03/08/21 21:59 05:59 13:59 Intake Total 1100 120 500 Output Total 1 3 2 Balance 1099 117 498 Weight 103.561 kg Intake & Output: Intake & Output 03/07/21 03/08/21 03/08/21 21:59 05:59 13:59 Intake Total 1100 120 500 Output Total 1 3 2 Balance 1099 117 498 Weight 103.561 kg Intake: IV 500 Vancomycin 1,500 mg In Sodium 500 Chloride 0.9% 500 ml @ 333.3 mls/hr IV Q24H [facility] Rx#: [id number] Oral 1100 120 Output: # of times incontinent of urine 1 3 2 Other: Meal Dinner Breakfast Percent of Meal Consumed 50% Refused Feeding Ability Assist with Tray Set Up Total Assistance Nourishment/Supplement name applesauce patient spitting out breakfast and covering his face with blankets OBJ DATA Labs CBC & Chem 7: 03/09/21 08:00 03/09/21 07:25 Labs: Abnormal Lab Results 03/08/21 03/08/21 03/07/21 05:37 05:37 06:00 RBC 4.38 L Plt Count 85 L MPV 12.5 H [place] % (Auto) Lymph # (Auto) 1.45 L Carbon Dioxide 20 L Anion Gap 6.0 L BUN 36 H Calcium 8.3 L Lactate Dehydrogenase 316 H 318 H 03/07/21 06:00 RBC 4.49 L Plt Count 121 L MPV 11.9 H [place] % (Auto) 15.9 H Lymph # (Auto) 0.87 L Carbon Dioxide Anion Gap BUN Calcium Lactate Dehydrogenase Meds: Medications Acetaminophen (Acetaminophen 325 Mg Tablet) 650 mg PO Q4-6HP PRN; Protocol PRN Reason: Per Pain Protocol/Fever > 101 Last Admin: 03/06/21 23:13 Dose: 650 mg Documented by: Hydrocodone Bitart/Acetaminophen (Hydrocodone/Apap 10/325mg Tablet) 1 tab PO Q8HP PRN; Protocol PRN Reason: Pain Aspirin (Aspirin 81 Mg Tab.Chew) 81 mg PO DAILY [facility] Last Admin: 03/08/21 09:07 Dose: Not Given Documented by: Bisacodyl (Bisacodyl 10 Mg Supp.Rect) 10 mg MD Q2-3DAYS PRN PRN Reason: Constipation Last Admin: 03/06/21 23:14 Dose: 10 mg Documented by: Cyanocobalamin (Cyanocobalamin (Vitamin B-12) 500 Mcg Tablet) 1,000 mcg PO BID [facility] Stop: 03/11/21 09:01 Last Admin: 03/08/21 09:07 Dose: Not Given Documented by: Docusate Sodium (Docusate Sodium 100 Mg Capsule) 100 mg PO BID [facility] Last Admin: 03/08/21 09:07 Dose: Not Given Documented by: Donepezil HCl (Donepezil 10 Mg Tablet) 10 mg PO QDAY [facility] Last Admin: 03/08/21 09:07 Dose: Not Given Documented by: Folic Acid (Folic Acid 1 Mg Tablet) 1 mg PO DAILY [facility] Last Admin: 03/08/21 09:07 Dose: Not Given Documented by: Fondaparinux (Fondaparinux Sodium 2.5 Mg/0.5 Ml Syringe) 2.5 mg SQ DAILY [facility] Guaifenesin/Codeine Phosphate (Guaifenesin/Codeine 10 Ml Udc) 10 ml PO Q4HP PRN PRN Reason: Cough Potassium Chloride 40 meq/ (Dextrose) 520 mls @ 130 mls/hr IV UD PRN PRN Reason: K+ = or < 3.5 Acetaminophen (Ofirmev) 650 mg in 65 mls @ 130 mls/hr IV Q6HP PRN; Protocol PRN Reason: Per Pain Protocol/Fever > 101 Magnesium Sulfate (Magnesium Sulfate) 2 gm in 50 mls @ 50 mls/hr IV UD PRN PRN Reason: MG = or < 1.7 Sodium Chloride (Sodium Chloride 0.9%) 1,000 mls @ 50 mls/hr IV .Q20H [facility] Stop: 03/09/21 05:22 Last Admin: 03/07/21 15:27 Dose: 50 mls/hr Documented by: Vancomycin HCl 1,500 mg/ (Sodium Chloride) 500 mls @ 333.3 mls/hr IV Q24H [facility] Last Infusion: 03/08/21 10:55 Dose: Infused Documented by: Iron Carb/Multivit/Solution Developer/Folic Acid (Multivit,Ther Iron,Ca,Fa & Min 1 Tablet) 1 tab PO DAILY [facility] Last Admin: 03/08/21 09:07 Dose: Not Given Documented by: Levothyroxine Sodium (Levothyroxine 50 Mcg Tablet) 50 mcg PO QAMAC [facility] Last Admin: 03/08/21 07:03 Dose: 50 mcg Documented by: Lorazepam (Lorazepam 0.5 Mg Tablet) 0.5 mg PO Q6HP PRN PRN Reason: ANXIETY/SEDATION Last Admin: 03/08/21 07:03 Dose: 0.5 mg Documented by: Melatonin (Melatonin 3 Mg Tablet) 3 mg PO HSP PRN PRN Reason: Insomnia Last Admin: 03/06/21 21:29 Dose: 3 mg Documented by: Ondansetron HCl (Ondansetron 4 Mg Odt Tablet) 4 mg SL Q4-6HP PRN; Protocol PRN Reason: Nausea And Vomiting Ondansetron HCl (Ondansetron 4 Mg/2 Ml Vial) 4 mg IV Q4-6HP PRN; Protocol PRN Reason: Nausea And Vomiting Nystatin Ointment 1 (Dose Tube) 1 dose TOPICAL BID [facility] Last Admin: 03/08/21 08:56 Dose: 1 dose Documented by: Polyethylene Glycol (Polyethylene Glycol 3350 17 Gm Packet) 17 gm PO DAILYP PRN PRN Reason: Constipation Potassium Chloride (Potassium Chloride 20 Meq Packet) 40 meq PO DAILYP PRN PRN Reason: K+ < 3.5 Senna/Docusate Sodium (Sennosides/Docusate Sodium 1 Tab Tablet) 1 tab PO HS [facility] Last Admin: 03/07/21 20:21 Dose: 1 tab Documented by: Sodium Chloride (0.9 % Sodium Chloride 10 Ml Syringe) 10 ml IV Q8 [facility] Last Admin: 03/08/21 04:03 Dose: Not Given Documented by: Thiamine HCl (Thiamine 100 Mg Tablet) 100 mg PO DAILY [facility] Last Admin: 03/08/21 09:08 Dose: Not Given Documented by: Vancomycin HCl (Vancomycin Per Pharmacy) 1 order IV UD [facility]; Protocol A/P Narrative A/P Narrative: Assessment: 85-year-old male history of hypothyroidism, cognitive impairment presented to the ED a couple times after falls at home. Family was unable to care for the patient at home. The patient was encephalopathic on admission, COVID-19 PCR positive, soon after admission, 2 out of 2 blood cultures resulted positive for gram-positive bacteremia. The patient was started on IV Vancomycin. #Gram-positive bacteremia vs skin contaminant-surveillance cultures/source evaluation/vancomycin/echocardiogram/ID following #Covid PCR positive-could reflect prior illness vs asymptomatic illness #Dementia with behavioral disturbances #Generalized weakness #Resolved mild prerenal PEGGY #Hypothyroidism: stable TSH #Degenerative disc disease Plan Start low dose Seroquel prn, discontinue prn Ativan and Hydrocodone. Following cultures/echocardiogram/ID consult/source evaluation Delirium precautions/avoid hypnotics, bright lights and frequent reorientation Pre-existing medical condition management home medication PT following Discharge planning Time Spent With Patient Time: Total time spent is greater than 50% in coordination of care (as documented) at patient's floor/unit and/or counseling patient: QUALITY VTE Deep Vein Thrombosis/Pulmonary Embolism Present on Admission: No
--- NOTE | 2021-03-08 13:37 | XRay Report ---
HISTORY: Recent fall, evaluate for interval change FINDINGS: Heart is mildly enlarged. There is asymmetric enlargement of the pulmonary vasculature, right side greater than left. There is no consolidating infiltrate, mass or pleural effusion. Aorta is mildly tortuous. No pleural effusion is present. Severe degenerative changes are present in both shoulders. No fracture is seen. Comparison with the recent chest CT done on 03/06/21 shows the cardiomegaly is unchanged. The prominence of the pulmonary vascular markings has become worse. IMPRESSION: Mild cardiomegaly with asymmetric mild pulmonary vascular congestion Interpreted and Authenticated by: Aureliano Laboy 03/08/21
[2021-03-08] MEDS: 0.9 % SODIUM CHLORIDE 1,000 ML IV SCH (14:00)
[2021-03-08] MEDS: SENNOSIDES/DOCUSATE SODIUM 1 TAB TABLET PO SCH (20:50)
[2021-03-09] MEDS: LORazepam 0.5 MG TABLET PO PRN ×2 (00:50→07:48)
[2021-03-09] MEDS: 0.9 % SODIUM CHLORIDE 10 ML SYRINGE IV SCH ×3 (04:32→22:47)
[2021-03-09] MEDS: LEVOTHYROXINE 50 MCG TABLET PO SCH (07:42)
[2021-03-09] MEDS ORDERED: OLANZapine 10 MG VIAL IM PRN (09:11)
[2021-03-09 09:17] LABS: Basophils # (Auto) 0.02 K/mcL (0.00-0.20); Basophils % (Auto) 0.5 % (0.0-2.0); Eosinophils # (Auto) 0.04 K/mcL (0.00-0.70); Eosinophils % (Auto) 0.9 % (0.0-7.0); Hematocrit 44.1 % (41.0-55.0); Hemoglobin 13.9 g/dL (13.5-16.5); Lymphocytes # (Auto) 1.06 K/mcL (1.50-4.80); Mean Cell Volume 97.6 fL (80.0-100.0); Mean Corpuscular HGB Conc 31.5 g/dL (31.0-36.0); Mean Platelet Volume 12.1 fL (7.4-10.4); Monocytes # (Auto) 0.46 K/mcL (0.10-0.90); Monocytes % (Auto) 10.4 % (1.0-12.0); Neutrophils % (Auto) 64.2 % (38.0-78.0); Platelet Count 111 K/mcL (140-440); RBC 4.52 M/mcL (4.50-5.90); Red Cell Distribution Width 13.9 % (11.5-14.5); WBC 4.4 K/mcL (4.5-11.0)
[2021-03-09] MEDS ORDERED: QUEtiapine 25 MG TABLET PO ONE ×3 (09:33→23:52)
[2021-03-09] MEDS: ASPIRIN 81 MG TAB.CHEW PO SCH (10:44)
[2021-03-09] MEDS: DOCUSATE SODIUM 100 MG CAPSULE PO SCH ×2 (10:44→22:34)
[2021-03-09] MEDS: DONEPEZIL 10 MG TABLET PO SCH (10:44)
[2021-03-09] MEDS: MULTIVIT,THER IRON,CA,FA & MIN 1 TABLET PO SCH (10:45)
[2021-03-09] MEDS: CYANOCOBALAMIN (VITAMIN B-12) 500 MCG TABLET PO SCH ×2 (10:45→22:45)
[2021-03-09] MEDS: FOLIC ACID 1 MG TABLET PO SCH (10:45)
[2021-03-09] MEDS: THIAMINE 100 MG TABLET PO SCH (10:45)
[2021-03-09] MEDS: FONDAPARINUX SODIUM 2.5 MG/0.5 ML SYRINGE SQ SCH (10:46)
[2021-03-09 11:40] LABS: ALT/SGPT 17 U/L (<40); AST/SGOT 37 U/L (<40); Albumin 3.4 gm/dL (3.2-5.2); Albumin/Globulin Ratio 1.2 (1.0-2.3); Alkaline Phosphatase 60 U/L (39-117); Bilirubin,Direct < 0.2 mg/dL (0-0.3); Bilirubin,Total 0.3 mg/dL (0.1-1.0); Blood Urea Nitrogen 17 mg/dL (8-23); Calcium 8.6 mg/dL (8.6-10.4); Carbon Dioxide 22 mmol/L (22-30); Chloride 103 mmol/L (96-108); Globulin 2.9 gm/dL (2.2-3.7); Glomerular Filtration Rate 69; Glucose 101 mg/dL (70-105); Lactate Dehydrogenase 319 U/L (135-225); Phosphorous 2.1 mg/dL (2.5-4.5); Triglycerides 79 mg/dL (<150); Uric Acid 4.3 mg/dL (2.5-8.0)
[2021-03-09] MEDS: VANCOMYCIN 1,500 MG in 0.9 % SODIUM CHLORIDE 500 ML IV SCH ×3 (13:12→22:33)
[2021-03-09] MEDS: NYSTATIN TOPICAL SCH ×2 (13:52→22:48)
[2021-03-09] MEDS ORDERED: QUEtiapine 25 MG TABLET PO PRN (15:04)
[2021-03-09] MEDS: CARBIDOPA/LEVODOPA 25/100 TABLET PO SCH (21:15)
[2021-03-09] MEDS: SENNOSIDES/DOCUSATE SODIUM 1 TAB TABLET PO SCH (22:34)
[2021-03-09] MEDS: MELATONIN 3 MG TABLET PO PRN (22:43)
[2021-03-09] MEDS: ACETAMINOPHEN 325 MG TABLET PO PRN (22:43)
[2021-03-10] MEDS ORDERED: QUEtiapine 25 MG TABLET ONE (00:11)
[2021-03-10] MEDS: 0.9 % SODIUM CHLORIDE 10 ML SYRINGE IV SCH ×3 (04:19→20:48)
[2021-03-10 07:33] LABS: ALT/SGPT < 5 U/L (<40); AST/SGOT 34 U/L (<40); Albumin 3.1 gm/dL (3.2-5.2); Albumin/Globulin Ratio 1.1 (1.0-2.3); Alkaline Phosphatase 56 U/L (39-117); Bilirubin,Direct < 0.2 mg/dL (0-0.3); Bilirubin,Total 0.4 mg/dL (0.1-1.0); Blood Urea Nitrogen 13 mg/dL (8-23); Calcium 8.4 mg/dL (8.6-10.4); Carbon Dioxide 22 mmol/L (22-30); Chloride 106 mmol/L (96-108); Globulin 2.7 gm/dL (2.2-3.7); Glomerular Filtration Rate 69; Glucose 82 mg/dL (70-105); Lactate Dehydrogenase 279 U/L (135-225); Phosphorous 2.4 mg/dL (2.5-4.5); Triglycerides 63 mg/dL (<150); Uric Acid 4.1 mg/dL (2.5-8.0)
[2021-03-10 08:42] LABS: Basophils # (Auto) 0.01 K/mcL (0.00-0.20); Basophils % (Auto) 0.2 % (0.0-2.0); Eosinophils # (Auto) 0.03 K/mcL (0.00-0.70); Eosinophils % (Auto) 0.7 % (0.0-7.0); Hematocrit 42.6 % (41.0-55.0); Lymphocytes # (Auto) 0.75 K/mcL (1.50-4.80); Lymphocytes % (Auto) 18.2 % (15.0-49.0); Mean Cell Volume 94.9 fL (80.0-100.0); Mean Corpuscular HGB Conc 32.9 g/dL (31.0-36.0); Mean Platelet Volume 11.7 fL (7.4-10.4); Monocytes % (Auto) 9.7 % (1.0-12.0); Neutrophils % (Auto) 71.2 % (38.0-78.0); Platelet Count 108 K/mcL (140-440); RBC 4.49 M/mcL (4.50-5.90); Red Cell Distribution Width 13.6 % (11.5-14.5); WBC 4.1 K/mcL (4.5-11.0)
[2021-03-10] MEDS: THIAMINE 100 MG TABLET PO SCH (09:13)
[2021-03-10] MEDS: DONEPEZIL 10 MG TABLET PO SCH (09:13)
[2021-03-10] MEDS: CYANOCOBALAMIN (VITAMIN B-12) 500 MCG TABLET PO SCH ×2 (09:13→20:44)
[2021-03-10] MEDS: LEVOTHYROXINE 50 MCG TABLET PO SCH (09:13)
[2021-03-10] MEDS: FOLIC ACID 1 MG TABLET PO SCH (09:13)
[2021-03-10] MEDS: QUEtiapine 25 MG TABLET PO PRN (09:13)
[2021-03-10] MEDS: MULTIVIT,THER IRON,CA,FA & MIN 1 TABLET PO SCH (09:13)
[2021-03-10] MEDS: DOCUSATE SODIUM 100 MG CAPSULE PO SCH ×2 (09:14→20:44)
[2021-03-10] MEDS: ASPIRIN 81 MG TAB.CHEW PO SCH (09:14)
[2021-03-10] MEDS: CARBIDOPA/LEVODOPA 25/100 TABLET PO SCH ×3 (09:14→20:44)
[2021-03-10] MEDS: FONDAPARINUX SODIUM 2.5 MG/0.5 ML SYRINGE SQ SCH (09:14)
[2021-03-10] MEDS: NYSTATIN TOPICAL SCH ×2 (11:15→20:46)
[2021-03-10] MEDS: NEUTRA PHOS 1 PACKET PO SCH ×2 (11:16→20:44)
[2021-03-10] MEDS: VANCOMYCIN 1,500 MG in 0.9 % SODIUM CHLORIDE 500 ML IV SCH (11:17)
--- NOTE | 2021-03-10 11:30 | Internal Med Progress Note ---
SUBJECTIVE Subjective Patient information: Note initiated : 03/10/21 at 11:28 am Service Date, if different from initiated Date: [] Patient: Ralf Galicia a 85 y/o M admitted on 03/07/21 for fall. Chief Complaint: [] Interval history: Mr. Galicia is a 85 year old M with history of dementia/hypothyroidism who lives with his ailing on hemodialysis. Patient presented to the ER this morning he fell out of bed and family was unable to help him. 911 was called. Initial work-up was consistent with severe weakness/confused state. Most of the history was obtained from patient's family and EMS. Initial investigations were unremarkable including CT chest abdomen pelvis/spine and head, normal white count however elevated BUN consistent with volume depletion. COVID-19 positive without hypoxia or chest infiltrates. Patient was started on crystalloids. Despite recommendations by ER physician for observation admission family insisted on discharging patient home. Within an hour of reaching home patient again fell out of bed and presents back to the ER. Following acute evaluation hospitalist service was consulted after case management recommended hospitalization until a safe discharge plan is available. He is notably confused and mumbling unable to provide any history. endorses to history as above. She felt that her self and her family is in no capacity to take care of his needs and would like him to be placed at a facility. On a quick exam there is extensive excoriation along with erythema around the pannus folds/lateral thigh and back. Patient is involuntary tremor noted in both upper extremity 03/07-2/2+ blood culture for gram-positive cocci. Repeat surveillance cultures pending. Echocardiogram ordered. ID consulted. Started vancomycin. Covid positive. Remains encephalopathic and confused. Renal function improving. 03/08-patient remains confused and agitated requiring Ativan. Requiring 3 person assist. Platelets downtrending. Switch to Arixtra. White count 7.2. Currently on room air. Tolerating diet. ID consulted. Await echocardiogram. 03/09-started low dose seroquel for agitation, discontinued ativan. Agitation improved after receiving seroquel. Awaiting culture results and ECHO. 03/10-reviewed all blood cultures showing 1/2 positive cultures on 03/06 for coag negative staph which is probably a contaminant. Discussed with ID, recommended that we could discontinue Vancomycin IV now. Started lisinopril for elevated blood pressure. Trial of Sinemet for tremors seems to have benefited the patient-tremors could be from Parkinson's disease however the patient will need to see neurology after discharge for a formal evaluation. Head: Atraumatic, normal inspection. Eyes: normal appearance, no scleral icterus. Neck: full ROM Respiratory: no respiratory distress. Cardiovascular: normal rate and rhythm, S1, S2. GI/Abdominal: soft, nontender, no guarding. Extremities: full range of motion, nontender. Neurological: CN II-XII intact, intact motor, intact sensation. Psychiatric: normal mood. Skin: warm, normal color Constitutional Vitals: Vital Signs Temp Pulse Resp BP Pulse Ox 98.8 F 85 20 188/103 95 03/10/21 08:00 03/10/21 08:00 03/10/21 08:00 03/10/21 08:00 03/10/21 08:00 Period Temp Pulse Resp BP Sys/Truong Pulse Ox Last 24 Hr 98.8 F-99.5 F 85-101 20-24 142-188/57-103 93-95 Intake and Output 03/09/21 03/10/21 03/10/21 21:59 05:59 13:59 Intake Total 920 800 Output Total 100 428 Balance 820 372 Weight 103.782 kg Intake & Output: Intake & Output 03/09/21 03/10/21 03/10/21 21:59 05:59 13:59 Intake Total 920 800 Output Total 100 428 Balance 820 372 Weight 103.782 kg Intake: IV 920 500 Sodium Chloride 0.9% 1,000 ml @ 420 50 mls/hr IV .Q20H [facility] Rx#: [id number] Vancomycin 1,500 mg In Sodium 500 500 Chloride 0.9% 500 ml @ 333.3 mls/hr IV Q12H [facility] Rx#: [id number] Oral 300 Output: Void Amount 100 425 # of times incontinent of urine 3 Other: Urine Appearance Clear Clear Urine Color Bright Yellow Bright Yellow Stool Size Moderate Stool Color Brown Stool Consistency Normal for Patient # Voids 3 # Bowel Movements 1 OBJ DATA Labs CBC & Chem 7: 03/10/21 08:08 03/10/21 05:43 Labs: Abnormal Lab Results 03/10/21 03/10/21 03/09/21 08:08 05:43 08:00 WBC 4.1 L 4.4 L RBC 4.49 L Plt Count 108 L 111 L MPV 11.7 H 12.1 H Lymph # (Auto) 0.75 L 1.06 L Anion Gap 6.0 L Calcium 8.4 L Phosphorus 2.4 L Lactate Dehydrogenase 279 H Total Protein 5.8 L Albumin 3.1 L 03/09/21 03/08/21 03/08/21 07:25 05:37 05:37 WBC RBC 4.38 L Plt Count 85 L MPV 12.5 H Lymph # (Auto) 1.45 L Anion Gap 6.0 L Calcium 8.3 L Phosphorus 2.1 L Lactate Dehydrogenase 319 H 316 H Total Protein Albumin Meds: Medications Acetaminophen (Acetaminophen 325 Mg Tablet) 650 mg PO Q4-6HP PRN; Protocol PRN Reason: Per Pain Protocol/Fever > 101 Last Admin: 03/09/21 22:43 Dose: 650 mg Documented by: Aspirin (Aspirin 81 Mg Tab.Chew) 81 mg PO DAILY [facility] Last Admin: 03/10/21 09:14 Dose: 81 mg Documented by: Bisacodyl (Bisacodyl 10 Mg Supp.Rect) 10 mg AL Q2-3DAYS PRN PRN Reason: Constipation Last Admin: 03/06/21 23:14 Dose: 10 mg Documented by: Carbidopa/Levodopa (Carbidopa/Levodopa 25/100 Tablet) 1 tab PO TID [facility] Last Admin: 03/10/21 09:14 Dose: 1 tab Documented by: Cyanocobalamin (Cyanocobalamin (Vitamin B-12) 500 Mcg Tablet) 1,000 mcg PO BID [facility] Stop: 03/11/21 09:01 Last Admin: 03/10/21 09:13 Dose: 1,000 mcg Documented by: Docusate Sodium (Docusate Sodium 100 Mg Capsule) 100 mg PO BID [facility] Last Admin: 03/10/21 09:14 Dose: 100 mg Documented by: Donepezil HCl (Donepezil 10 Mg Tablet) 10 mg PO QDAY [facility] Last Admin: 03/10/21 09:13 Dose: 10 mg Documented by: Folic Acid (Folic Acid 1 Mg Tablet) 1 mg PO DAILY [facility] Last Admin: 03/10/21 09:13 Dose: 1 mg Documented by: Fondaparinux (Fondaparinux Sodium 2.5 Mg/0.5 Ml Syringe) 2.5 mg SQ DAILY [facility] Last Admin: 03/10/21 09:14 Dose: 2.5 mg Documented by: Guaifenesin/Codeine Phosphate (Guaifenesin/Codeine 10 Ml Udc) 10 ml PO Q4HP PRN PRN Reason: Cough Potassium Chloride 40 meq/ (Dextrose) 520 mls @ 130 mls/hr IV UD PRN PRN Reason: K+ = or < 3.5 Acetaminophen (Ofirmev) 650 mg in 65 mls @ 130 mls/hr IV Q6HP PRN; Protocol PRN Reason: Per Pain Protocol/Fever > 101 Magnesium Sulfate (Magnesium Sulfate) 2 gm in 50 mls @ 50 mls/hr IV UD PRN PRN Reason: MG = or < 1.7 Last Admin: 03/10/21 11:16 Dose: 50 mls/hr Documented by: Iron Carb/Multivit/[place]/Folic Acid (Multivit,Ther Iron,Ca,Fa & Min 1 Tablet) 1 tab PO DAILY [facility] Last Admin: 03/10/21 09:13 Dose: 1 tab Documented by: Levothyroxine Sodium (Levothyroxine 50 Mcg Tablet) 50 mcg PO QAMAC [facility] Last Admin: 03/10/21 09:13 Dose: 50 mcg Documented by: Lisinopril (Lisinopril 10 Mg Tablet) 5 mg PO DAILY [facility] Melatonin (Melatonin 3 Mg Tablet) 3 mg PO HSP PRN PRN Reason: Insomnia Last Admin: 03/09/21 22:43 Dose: 3 mg Documented by: Ondansetron HCl (Ondansetron 4 Mg Odt Tablet) 4 mg SL Q4-6HP PRN; Protocol PRN Reason: Nausea And Vomiting Ondansetron HCl (Ondansetron 4 Mg/2 Ml Vial) 4 mg IV Q4-6HP PRN; Protocol PRN Reason: Nausea And Vomiting Last Admin: 03/09/21 00:05 Dose: 4 mg Documented by: Nystatin Ointment 1 (Dose Tube) 1 dose TOPICAL BID [facility] Last Admin: 03/10/21 11:15 Dose: 1 dose Documented by: Polyethylene Glycol (Polyethylene Glycol 3350 17 Gm Packet) 17 gm PO DAILYP PRN PRN Reason: Constipation Potassium Chloride (Potassium Chloride 20 Meq Packet) 40 meq PO DAILYP PRN PRN Reason: K+ < 3.5 Potassium/Phosphorus/Sodium (Neutra Phos 1 Packet) 1 packet PO BID [facility] Stop: 03/10/21 21:01 Last Admin: 03/10/21 11:16 Dose: 1 packet Documented by: Quetiapine Fumarate (Quetiapine 25 Mg Tablet) 25 mg PO DAILYP PRN PRN Reason: Agitation Last Admin: 03/10/21 09:13 Dose: 25 mg Documented by: Senna/Docusate Sodium (Sennosides/Docusate Sodium 1 Tab Tablet) 1 tab PO HS [facility] Last Admin: 03/09/21 22:34 Dose: Not Given Documented by: Sodium Chloride (0.9 % Sodium Chloride 10 Ml Syringe) 10 ml IV Q8 [facility] Last Admin: 03/10/21 04:19 Dose: 10 ml Documented by: Thiamine HCl (Thiamine 100 Mg Tablet) 100 mg PO DAILY [facility] Last Admin: 03/10/21 09:13 Dose: 100 mg Documented by: Vancomycin HCl (Vancomycin Per Pharmacy) 1 order IV UD [facility]; Protocol A/P Narrative A/P Narrative: Assessment: 85-year-old male history of hypothyroidism, cognitive impairment presented to the ED a couple times after falls at home. Family was unable to care for the patient at home. The patient was encephalopathic on admission, COVID-19 PCR positive, soon after admission, 2 out of 2 blood cultures resulted positive for gram-positive bacteremia. The patient was started on IV Vancomycin. #Covid PCR positive-nonpulmonary illness vs prior infection #Coagulase negative staph positive blood culture 1/2-likely skin contaminant #Dementia with behavioral disturbances #Generalized weakness #Resolved mild prerenal PEGGY #Hypothyroidism: stable TSH #Degenerative disc disease #Resting tremors-possible parkinsonism Plan Discontinue Vancomycin IV. Continue Sinemet TID for now as tremors appear to have improved-neurology referral at discharge. Low dose Seroquel prn. Start lisinopril Delirium precautions/avoid hypnotics, bright lights and frequent reorientation Pre-existing medical condition management home medication PT following Discharge planning Time Spent With Patient Time: Total time spent is greater than 50% in coordination of care (as documented) at patient's floor/unit and/or counseling patient: QUALITY VTE Deep Vein Thrombosis/Pulmonary Embolism Present on Admission: No
[2021-03-10] MEDS: SENNOSIDES/DOCUSATE SODIUM 1 TAB TABLET PO SCH (20:44)
[2021-03-11] MEDS: 0.9 % SODIUM CHLORIDE 10 ML SYRINGE IV SCH ×3 (04:55→20:49)
[2021-03-11] MEDS: ACETAMINOPHEN 325 MG TABLET PO PRN (07:03)
[2021-03-11] MEDS: LEVOTHYROXINE 50 MCG TABLET PO SCH (07:04)
[2021-03-11] MEDS: CARBIDOPA/LEVODOPA 25/100 TABLET PO SCH (07:26)
[2021-03-11 07:31] LABS: Basophils # (Auto) 0.02 K/mcL (0.00-0.20); Basophils % (Auto) 0.5 % (0.0-2.0); Eosinophils # (Auto) 0.08 K/mcL (0.00-0.70); Eosinophils % (Auto) 2.1 % (0.0-7.0); Hematocrit 45.7 % (41.0-55.0); Hemoglobin 14.1 g/dL (13.5-16.5); Lymphocytes # (Auto) 0.73 K/mcL (1.50-4.80); Lymphocytes % (Auto) 19.2 % (15.0-49.0); Mean Cell Volume 99.6 fL (80.0-100.0); Mean Corpuscular HGB Conc 30.9 g/dL (31.0-36.0); Mean Platelet Volume 11.8 fL (7.4-10.4); Monocytes # (Auto) 0.33 K/mcL (0.10-0.90); Monocytes % (Auto) 8.7 % (1.0-12.0); Neutrophils % (Auto) 69.5 % (38.0-78.0); Platelet Count 92 K/mcL (140-440); RBC 4.59 M/mcL (4.50-5.90); WBC 3.8 K/mcL (4.5-11.0)
[2021-03-11 09:45] LABS: ALT/SGPT 8 U/L (<40); AST/SGOT 40 U/L (<40); Albumin 3.5 gm/dL (3.2-5.2); Albumin/Globulin Ratio 1.2 (1.0-2.3); Alkaline Phosphatase 61 U/L (39-117); Bilirubin,Direct < 0.2 mg/dL (0-0.3); Bilirubin,Total 0.3 mg/dL (0.1-1.0); Blood Urea Nitrogen 16 mg/dL (8-23); Calcium 8.4 mg/dL (8.6-10.4); Carbon Dioxide 27 mmol/L (22-30); Chloride 101 mmol/L (96-108); Globulin 2.9 gm/dL (2.2-3.7); Glomerular Filtration Rate 78; Glucose 106 mg/dL (70-105); Lactate Dehydrogenase 335 U/L (135-225); Phosphorous 2.3 mg/dL (2.5-4.5); Triglycerides 102 mg/dL (<150); Uric Acid 3.8 mg/dL (2.5-8.0)
[2021-03-11] MEDS: CYANOCOBALAMIN (VITAMIN B-12) 500 MCG TABLET PO SCH (10:08)
[2021-03-11] MEDS: THIAMINE 100 MG TABLET PO SCH (10:09)
[2021-03-11] MEDS: LISINOPRIL 10 MG TABLET PO SCH (10:09)
[2021-03-11] MEDS: FOLIC ACID 1 MG TABLET PO SCH (10:09)
[2021-03-11] MEDS: MULTIVIT,THER IRON,CA,FA & MIN 1 TABLET PO SCH (10:09)
[2021-03-11] MEDS: FONDAPARINUX SODIUM 2.5 MG/0.5 ML SYRINGE SQ SCH (10:10)
[2021-03-11] MEDS: ASPIRIN 81 MG TAB.CHEW PO SCH (10:10)
[2021-03-11] MEDS: DOCUSATE SODIUM 100 MG CAPSULE PO SCH ×3 (10:10→20:55)
[2021-03-11] MEDS: DONEPEZIL 10 MG TABLET PO SCH (10:10)
[2021-03-11] MEDS: NYSTATIN TOPICAL SCH ×2 (10:11→20:50)
[2021-03-11] MEDS: QUEtiapine 25 MG TABLET PO PRN (10:22)
--- NOTE | 2021-03-11 12:25 | XRay Report ---
HISTORY: Fever, recent fall FINDINGS: The heart remains mildly enlarged. There is a generalized haziness in the lung parenchyma bilaterally. The pulmonary vessels appear enlarged. No pleural effusion is present and there is no pneumothorax. No rib fractures seen. 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 Comparison with the prior x-ray done on 03/08/21 shows increasing prominence of the lung markings around the left hilum and no significant change in the right. IMPRESSION: Cardiomegaly with pulmonary vascular congestion. Superimposed pneumonia cannot be excluded. Interpreted and Authenticated by: Aureliano Laboy 03/11/21
[2021-03-11] MEDS: PROPRANOLOL 60 MG CAP.XL.24H PO SCH ×2 (13:30→15:02)
[2021-03-11] MEDS ORDERED: FUROSEMIDE 40 MG/4 ML VIAL IV ONE (14:16)
--- NOTE | 2021-03-11 14:23 | Internal Med Progress Note ---
SUBJECTIVE Subjective Patient information: Note initiated : 03/11/21 at 2:22 pm Service Date, if different from initiated Date: [] Patient: Ralf Galicia a 85 y/o M admitted on 03/07/21 for fall. Chief Complaint: [] Interval history: Mr. Galicia is a 85 year old M with history of dementia/hypothyroidism who lives with his ailing on hemodialysis. Patient presented to the ER this morning he fell out of bed and family was unable to help him. 911 was called. Initial work-up was consistent with severe weakness/confused state. Most of the history was obtained from patient's family and EMS. Initial investigations were unremarkable including CT chest abdomen pelvis/spine and head, normal white count however elevated BUN consistent with volume depletion. COVID-19 positive without hypoxia or chest infiltrates. Patient was started on crystalloids. Despite recommendations by ER physician for observation admission family insisted on discharging patient home. Within an hour of reaching home patient again fell out of bed and presents back to the ER. Following acute evaluation hospitalist service was consulted after case management recommended hospitalization until a safe discharge plan is available. He is notably confused and mumbling unable to provide any history. endorses to history as above. She felt that her self and her family is in no capacity to take care of his needs and would like him to be placed at a facility. On a quick exam there is extensive excoriation along with erythema around the pannus folds/lateral thigh and back. Patient is involuntary tremor noted in both upper extremity 03/07-2/2+ blood culture for gram-positive cocci. Repeat surveillance cultures pending. Echocardiogram ordered. ID consulted. Started vancomycin. Covid positive. Remains encephalopathic and confused. Renal function improving. 03/08-patient remains confused and agitated requiring Ativan. Requiring 3 person assist. Platelets downtrending. Switch to Arixtra. White count 7.2. Currently on room air. Tolerating diet. ID consulted. Await echocardiogram. 03/09-started low dose seroquel for agitation, discontinued ativan. Agitation improved after receiving seroquel. Awaiting culture results and ECHO. 03/10-reviewed all blood cultures showing 1/2 positive cultures on 03/06 for coag negative staph which is probably a contaminant. Discussed with ID, recommended that we could discontinue Vancomycin IV now. Started lisinopril for elevated blood pressure. Trial of Sinemet for tremors seems to have benefited the patient-tremors could be from Parkinson's disease however the patient will need to see neurology after discharge for a formal evaluation. 03/11-intermittent fevers, repeated blood cultures, UA, chest xray-increasing pulmonary congestion, CRP 3.6. Fevers could be d/t COVID. No hypoxia and chest xray does not show typical COVID opacities. Lasix IV started. ECHO report available LV EF 60-65%, unable to assess diastolic function, normal RV function, no severe valvulopathy. Discussed goals of care with the patient's , continue full code for now. She will discuss with other family members. Disc ontinued Sinemet trial as not effective for reducing tremors, will trial propranolol for possible essential tremor. Considering Swing bed status. Head: Atraumatic, normal inspection. Eyes: normal appearance, no scleral icterus. Neck: full ROM Respiratory: no respiratory distress. Cardiovascular: normal rate and rhythm, S1, S2. GI/Abdominal: soft, nontender, no guarding. Extremities: full range of motion, nontender. Neurological: CN II-XII intact, intact motor, intact sensation. Psychiatric: impaired cognition Skin: warm, normal color Constitutional Vitals: Vital Signs Temp Pulse Resp BP Pulse Ox 100.7 F H 52 L 24 H 172/84 100 03/11/21 11:40 03/11/21 11:40 03/11/21 11:40 03/11/21 11:40 03/11/21 11:40 Period Temp Pulse Resp BP Sys/Truong Pulse Ox Last 24 Hr 98.6 F-101.9 F 52-86 18-24 97-172/58-98 93-100 Intake and Output 03/11/21 03/11/21 03/11/21 05:59 13:59 21:59 Intake Total 400 Output Total 128 102 Balance 272 -102 Intake & Output: Intake & Output 03/11/21 03/11/21 03/11/21 05:59 13:59 21:59 Intake Total 400 Output Total 128 102 Balance 272 -102 Intake: Oral 400 Output: Void Amount 125 100 # of times incontinent of urine 3 2 Other: Meal snack Breakfast Percent of Meal Consumed 100% 25% Feeding Ability Assist with Tray Set Up Needs Supervision Urine Appearance Clear Clear Urine Color Bright Yellow Dark Yellow Urine Odor Normal Normal # Voids 1 OBJ DATA Labs CBC & Chem 7: 03/11/21 06:06 03/11/21 07:48 Labs: Abnormal Lab Results 03/11/21 03/11/21 03/11/21 07:48 07:48 06:06 WBC 3.8 L RBC MCHC 30.9 L Plt Count 92 L MPV 11.8 H Lymph # (Auto) 0.73 L Anion Gap 6.0 L Glucose 106 H Calcium 8.4 L Phosphorus 2.3 L AST 40 H Lactate Dehydrogenase 335 H C-Reactive Protein 3.60 H Total Protein Albumin 03/10/21 03/10/21 03/09/21 08:08 05:43 08:00 WBC 4.1 L 4.4 L RBC 4.49 L MCHC Plt Count 108 L 111 L MPV 11.7 H 12.1 H Lymph # (Auto) 0.75 L 1.06 L Anion Gap 6.0 L Glucose Calcium 8.4 L Phosphorus 2.4 L AST Lactate Dehydrogenase 279 H C-Reactive Protein Total Protein 5.8 L Albumin 3.1 L 03/09/21 07:25 WBC RBC MCHC Plt Count MPV Lymph # (Auto) Anion Gap Glucose Calcium Phosphorus 2.1 L AST Lactate Dehydrogenase 319 H C-Reactive Protein Total Protein Albumin Meds: Medications Acetaminophen (Acetaminophen 325 Mg Tablet) 650 mg PO Q4-6HP PRN; Protocol PRN Reason: Per Pain Protocol/Fever > 101 Last Admin: 03/11/21 07:03 Dose: 650 mg Documented by: Aspirin (Aspirin 81 Mg Tab.Chew) 81 mg PO DAILY [facility] Last Admin: 03/11/21 10:10 Dose: 81 mg Documented by: Bisacodyl (Bisacodyl 10 Mg Supp.Rect) 10 mg [place] Q2-3DAYS PRN PRN Reason: Constipation Last Admin: 03/06/21 23:14 Dose: 10 mg Documented by: Docusate Sodium (Docusate Sodium 100 Mg Capsule) 100 mg PO BID [facility] Last Admin: 03/11/21 10:10 Dose: 100 mg Documented by: Donepezil HCl (Donepezil 10 Mg Tablet) 10 mg PO QDAY [facility] Last Admin: 03/11/21 10:10 Dose: 10 mg Documented by: Folic Acid (Folic Acid 1 Mg Tablet) 1 mg PO DAILY [facility] Last Admin: 03/11/21 10:09 Dose: 1 mg Documented by: Fondaparinux (Fondaparinux Sodium 2.5 Mg/0.5 Ml Syringe) 2.5 mg SQ DAILY [facility] Last Admin: 03/11/21 10:10 Dose: 2.5 mg Documented by: Guaifenesin/Codeine Phosphate (Guaifenesin/Codeine 10 Ml Udc) 10 ml PO Q4HP PRN PRN Reason: Cough Potassium Chloride 40 meq/ (Dextrose) 520 mls @ 130 mls/hr IV UD PRN PRN Reason: K+ = or < 3.5 Acetaminophen (Ofirmev) 650 mg in 65 mls @ 130 mls/hr IV Q6HP PRN; Protocol PRN Reason: Per Pain Protocol/Fever > 101 Last Infusion: 03/10/21 19:29 Dose: Infused Documented by: Magnesium Sulfate (Magnesium Sulfate) 2 gm in 50 mls @ 50 mls/hr IV UD PRN PRN Reason: MG = or < 1.7 Last Infusion: 03/10/21 12:16 Dose: Infused Documented by: Iron Carb/Multivit/[place]/Folic Acid (Multivit,Ther Iron,Ca,Fa & Min 1 Tablet) 1 tab PO DAILY [facility] Last Admin: 03/11/21 10:09 Dose: 1 tab Documented by: Levothyroxine Sodium (Levothyroxine 50 Mcg Tablet) 50 mcg PO QAMAC [facility] Last Admin: 03/11/21 07:04 Dose: 50 mcg Documented by: Lisinopril (Lisinopril 10 Mg Tablet) 5 mg PO DAILY [facility] Last Admin: 03/11/21 10:09 Dose: 5 mg Documented by: Melatonin (Melatonin 3 Mg Tablet) 3 mg PO HSP PRN PRN Reason: Insomnia Last Admin: 03/09/21 22:43 Dose: 3 mg Documented by: Ondansetron HCl (Ondansetron 4 Mg Odt Tablet) 4 mg SL Q4-6HP PRN; Protocol PRN Reason: Nausea And Vomiting Ondansetron HCl (Ondansetron 4 Mg/2 Ml Vial) 4 mg IV Q4-6HP PRN; Protocol PRN Reason: Nausea And Vomiting Last Admin: 03/09/21 00:05 Dose: 4 mg Documented by: Nystatin Ointment 1 (Dose Tube) 1 dose TOPICAL BID [facility] Last Admin: 03/11/21 10:11 Dose: 1 dose Documented by: Polyethylene Glycol (Polyethylene Glycol 3350 17 Gm Packet) 17 gm PO DAILYP PRN PRN Reason: Constipation Potassium Chloride (Potassium Chloride 20 Meq Packet) 40 meq PO DAILYP PRN PRN Reason: K+ < 3.5 Propranolol HCl (Propranolol 60 Mg Cap.Xl.24h) 60 mg PO DAILY [facility] Last Admin: 03/11/21 13:30 Dose: Not Given Documented by: Quetiapine Fumarate (Quetiapine 25 Mg Tablet) 25 mg PO DAILYP PRN PRN Reason: Agitation Last Admin: 03/11/21 10:22 Dose: 25 mg Documented by: Senna/Docusate Sodium (Sennosides/Docusate Sodium 1 Tab Tablet) 1 tab PO HS [facility] Last Admin: 03/10/21 20:44 Dose: 1 tab Documented by: Sodium Chloride (0.9 % Sodium Chloride 10 Ml Syringe) 10 ml IV Q8 [facility] Last Admin: 03/11/21 13:57 Dose: 10 ml Documented by: Thiamine HCl (Thiamine 100 Mg Tablet) 100 mg PO DAILY [facility] Last Admin: 03/11/21 10:09 Dose: 100 mg Documented by: A/P Narrative A/P Narrative: Assessment: 85-year-old male history of hypothyroidism, cognitive impairment presented to the ED a couple times after falls at home. Family was unable to care for the patient at home. The patient was encephalopathic on admission, COVID-19 PCR positive, soon after admission, 2 out of 2 blood cultures resulted positive for gram-positive bacteremia. The patient was started on IV Vancomycin. #COVID-19 PCR positive-nonpulmonary COVID illness vs prior infection #Persistent [id number] vs occult infection #Coagulase negative staph positive blood culture 1/2-likely skin contaminant #Dementia with behavioral disturbances #Probable delirium #Thrombocytopenia #Generalized weakness #Resolved mild prerenal PEGGY #Hypothyroidism: stable TSH #Degenerative disc disease #Tremors #Hx of cervical fusion surgery Plan -Repeat blood cultures, UA for intermittent fevers -Lasix 40 mg IV x2 -Chest xray in AM -Trial of propranolol with holding parameters ER for tremors. -Continue lisinopril -Low dose Seroquel prn. -Continue home donepezil, levothyroxine. -Delirium mitigation strategies, avoid opioids/benzodiazepines/anticholinergic meds. -PT/OT -DVT ppx: fondaparinux -Code status: Full -Disposition: likely SNF, may convert to swing bed status d/t COVID then discharge to SNF when no longer in isolation. Time Spent With Patient Time: Total time spent is greater than 50% in coordination of care (as documented) at patient's floor/unit and/or counseling patient: QUALITY VTE Deep Vein Thrombosis/Pulmonary Embolism Present on Admission: No
[2021-03-11 16:50] LABS: Appearance,Urine HAZY (Clear); Bilirubin,Urine Negative (Negative); Color,Urine YELLOW; Culture Indicated,Urine No; Glucose,Urine (UA) Negative (Negative); Ketones,Urine Negative (Negative); Leukocyte Esterase,Urine Negative /ug (Negative); Mucus,Urine FEW /hpf; Nitrate,Urine Negative (Negative); Protein,Urine 30 mg/dL (Negative); Specific Gravity,Urine 1.023 (1.000-1.035); Urine Blood Negative (Negative); Urine RBC 1 /hpf (0-3); Urine Squamous Epithelial Cell < 1 /hpf (0-4); Urine WBC 1 /hpf (0-4); Urobilinogen,Urine Negative
[2021-03-11] MEDS: SENNOSIDES/DOCUSATE SODIUM 1 TAB TABLET PO SCH ×2 (20:49→20:55)
[2021-03-12] MEDS: ACETAMINOPHEN 325 MG TABLET PO PRN (02:37)
[2021-03-12] MEDS: 0.9 % SODIUM CHLORIDE 10 ML SYRINGE IV SCH ×3 (05:29→20:15)
[2021-03-12 07:34] LABS: Hematocrit 44.4 % (41.0-55.0); Hemoglobin 14.4 g/dL (13.5-16.5); Mean Cell Volume 95.3 fL (80.0-100.0); Mean Corpuscular HGB Conc 32.4 g/dL (31.0-36.0); Mean Platelet Volume 12.4 fL (7.4-10.4); Platelet Count 116 K/mcL (140-440); RBC 4.66 M/mcL (4.50-5.90); Red Cell Distribution Width 13.8 % (11.5-14.5); WBC 4.4 K/mcL (4.5-11.0)
[2021-03-12] MEDS: LEVOTHYROXINE 50 MCG TABLET PO SCH ×2 (07:49→09:36)
[2021-03-12 07:56] LABS: ALT/SGPT 26 U/L (<40); AST/SGOT 42 U/L (<40); Albumin 3.5 gm/dL (3.2-5.2); Albumin/Globulin Ratio 1.2 (1.0-2.3); Alkaline Phosphatase 65 U/L (39-117); Bilirubin,Direct < 0.2 mg/dL (0-0.3); Bilirubin,Total 0.5 mg/dL (0.1-1.0); Blood Urea Nitrogen 17 mg/dL (8-23); Calcium 8.5 mg/dL (8.6-10.4); Carbon Dioxide 26 mmol/L (22-30); Chloride 98 mmol/L (96-108); Glomerular Filtration Rate 61; Glucose 95 mg/dL (70-105); Lactate Dehydrogenase 336 U/L (135-225); Phosphorous 2.8 mg/dL (2.5-4.5); Triglycerides 71 mg/dL (<150); Uric Acid 4.4 mg/dL (2.5-8.0)
[2021-03-12 08:16] LABS: Band Neutrophils % 18 % (0-10); Lymphocytes % 19 % (15-49); Monocytes % (Manual) 5 % (1-12); Platelet Estimate DECREASED (Normal); RBC Morphology NORMAL (Normal); Reactive Lymphocytes 5 % (0-2); Segmented Neutrophils % 53 % (38-78)
[2021-03-12] MEDS: PROPRANOLOL 60 MG CAP.XL.24H PO SCH ×2 (09:04→09:34)
[2021-03-12] MEDS: DONEPEZIL 10 MG TABLET PO SCH ×2 (09:04→09:36)
[2021-03-12] MEDS: DOCUSATE SODIUM 100 MG CAPSULE PO SCH (09:04)
[2021-03-12] MEDS: NYSTATIN TOPICAL SCH (09:05)
[2021-03-12] MEDS: LISINOPRIL 10 MG TABLET PO SCH ×2 (09:05→09:37)
[2021-03-12] MEDS: FUROSEMIDE 40 MG/4 ML VIAL IV SCH ×2 (09:06→09:36)
[2021-03-12] MEDS: FOLIC ACID 1 MG TABLET PO SCH ×2 (09:07→09:36)
[2021-03-12] MEDS: THIAMINE 100 MG TABLET PO SCH ×2 (09:07→09:37)
[2021-03-12] MEDS: MULTIVIT,THER IRON,CA,FA & MIN 1 TABLET PO SCH ×2 (09:07→09:36)
[2021-03-12] MEDS: FONDAPARINUX SODIUM 2.5 MG/0.5 ML SYRINGE SQ SCH ×2 (09:07→09:38)
[2021-03-12] MEDS: QUEtiapine 25 MG TABLET PO PRN (09:12)
--- NOTE | 2021-03-12 09:55 | Internal Med Progress Note ---
SUBJECTIVE Subjective Patient information: Note initiated : 03/12/21 at 9:51 am Service Date, if different from initiated Date: [] Patient: Ralf Galicia a 85 y/o M admitted on 03/07/21 for fall. Chief Complaint: [] Interval history: Mr. Galicia is a 85 year old M with history of dementia/hypothyroidism who lives with his ailing on hemodialysis. Patient presented to the ER this morning he fell out of bed and family was unable to help him. 911 was called. Initial work-up was consistent with severe weakness/confused state. Most of the history was obtained from patient's family and EMS. Initial investigations were unremarkable including CT chest abdomen pelvis/spine and head, normal white count however elevated BUN consistent with volume depletion. COVID-19 positive without hypoxia or chest infiltrates. Patient was started on crystalloids. Despite recommendations by ER physician for observation admission family insisted on discharging patient home. Within an hour of reaching home patient again fell out of bed and presents back to the ER. Following acute evaluation hospitalist service was consulted after case management recommended hospitalization until a safe discharge plan is available. He is notably confused and mumbling unable to provide any history. endorses to history as above. She felt that her self and her family is in no capacity to take care of his needs and would like him to be placed at a facility. On a quick exam there is extensive excoriation along with erythema around the pannus folds/lateral thigh and back. Patient is involuntary tremor noted in both upper extremity 03/07-2/2+ blood culture for gram-positive cocci. Repeat surveillance cultures pending. Echocardiogram ordered. ID consulted. Started vancomycin. Covid positive. Remains encephalopathic and confused. Renal function improving. 03/08-patient remains confused and agitated requiring Ativan. Requiring 3 person assist. Platelets downtrending. Switch to Arixtra. White count 7.2. Currently on room air. Tolerating diet. ID consulted. Await echocardiogram. 03/09-started low dose seroquel for agitation, discontinued ativan. Agitation improved after receiving seroquel. Awaiting culture results and ECHO. 03/10-reviewed all blood cultures showing 1/2 positive cultures on 03/06 for coag negative staph which is probably a contaminant. Discussed with ID, recommended that we could discontinue Vancomycin IV now. Started lisinopril for elevated blood pressure. Trial of Sinemet for tremors seems to have benefited the patient-tremors could be from Parkinson's disease however the patient will need to see neurology after discharge for a formal evaluation. 03/11-intermittent fevers, repeated blood cultures, UA, chest xray-increasing pulmonary congestion, CRP 3.6. Fevers could be d/t COVID. No hypoxia and chest xray does not show typical COVID opacities. Lasix IV started. ECHO report available LV EF 60-65%, unable to assess diastolic function, normal RV function, no severe valvulopathy. Discussed goals of care with the patient's , continue full code for now. She will discuss with other family members. Disc ontinued Sinemet trial as not effective for reducing tremors, will trial propranolol for possible essential tremor. Considering Swing bed status. 03/12-patient declining all cares, overall seems to be progressively worsening, refused blood cultures for persistent fevers of unknown cause. UA negative for UTI, recent blood cultures showing no growth to date, repeated chest xray today. Updated the patient's , she is considering comfort care. Head: Atraumatic, normal inspection. Eyes: normal appearance, no scleral icterus. Neck: full ROM Respiratory: no respiratory distress. Cardiovascular: normal rate and rhythm, S1, S2. GI/Abdominal: soft, nontender, no guarding. Extremities: full range of motion, nontender. Neurological: CN II-XII intact, intact motor, intact sensation. Psychiatric: impaired cognition Skin: warm, normal color Constitutional Vitals: Vital Signs Temp Pulse Resp BP Pulse Ox 97.4 F 78 26 H 124/71 92 03/12/21 07:53 03/12/21 03:07 03/12/21 03:07 03/12/21 03:07 03/12/21 03:07 Period Temp Pulse Resp BP Sys/Truong Pulse Ox Last 24 Hr 97.4 F-100.7 F 52-80 24-30 124-180/62-102 92-100 Intake and Output 03/11/21 03/12/21 03/12/21 21:59 05:59 13:59 Output Total 1760 3 Balance -1760 -3 Weight 99.989 kg Intake & Output: Intake & Output 03/11/21 03/12/21 03/12/21 21:59 05:59 13:59 Output Total 1760 3 Balance -1760 -3 Weight 99.989 kg Output: Void Amount 1750 # of times incontinent of urine 10 3 Other: Urine Appearance Clear Urine Color Bright Yellow Straw Urine Odor Normal Stool Size Moderate Small Stool Color Brown Brown Brown Green Stool Consistency Liquid Loose Liquid Loose # Voids 1 # Bowel Movements 1 # of times incontinent of 1 1 1 Bowels OBJ DATA Labs CBC & Chem 7: 03/12/21 06:24 03/12/21 06:23 Labs: Abnormal Lab Results 03/12/21 03/12/21 03/11/21 06:24 06:23 15:00 WBC 4.4 L RBC MCHC Plt Count 116 L MPV 12.4 H Lymph # (Auto) Band Neutrophils % 18 H Reactive Lymphocytes 5 H Platelet Estimate Decreased A Sodium 131 L Anion Gap 7.0 L Glucose Calcium 8.5 L Phosphorus AST 42 H Lactate Dehydrogenase 336 H C-Reactive Protein 5.90 H Total Protein Albumin Urine Appearance Hazy A Urine Protein 30 A Urine Mucus Few A 03/11/21 03/11/21 03/11/21 07:48 07:48 06:06 WBC 3.8 L RBC MCHC 30.9 L Plt Count 92 L MPV 11.8 H Lymph # (Auto) 0.73 L Band Neutrophils % Reactive Lymphocytes Platelet Estimate Sodium Anion Gap 6.0 L Glucose 106 H Calcium 8.4 L Phosphorus 2.3 L AST 40 H Lactate Dehydrogenase 335 H C-Reactive Protein 3.60 H Total Protein Albumin Urine Appearance Urine Protein Urine Mucus 03/10/21 03/10/21 03/09/21 08:08 05:43 07:25 WBC 4.1 L RBC 4.49 L MCHC Plt Count 108 L MPV 11.7 H Lymph # (Auto) 0.75 L Band Neutrophils % Reactive Lymphocytes Platelet Estimate Sodium Anion Gap 6.0 L Glucose Calcium 8.4 L Phosphorus 2.4 L 2.1 L AST Lactate Dehydrogenase 279 H 319 H C-Reactive Protein Total Protein 5.8 L Albumin 3.1 L Urine Appearance Urine Protein Urine Mucus Meds: Medications Acetaminophen (Acetaminophen 325 Mg Tablet) 650 mg PO Q4-6HP PRN; Protocol PRN Reason: Per Pain Protocol/Fever > 101 Last Admin: 03/12/21 02:37 Dose: 650 mg Documented by: Bisacodyl (Bisacodyl 10 Mg Supp.Rect) 10 mg [place] Q2-3DAYS PRN PRN Reason: Constipation Last Admin: 03/06/21 23:14 Dose: 10 mg Documented by: Docusate Sodium (Docusate Sodium 100 Mg Capsule) 100 mg PO BID [facility] Last Admin: 03/12/21 09:04 Dose: Not Given Documented by: Donepezil HCl (Donepezil 10 Mg Tablet) 10 mg PO QDAY [facility] Last Admin: 03/12/21 09:36 Dose: Not Given Documented by: Folic Acid (Folic Acid 1 Mg Tablet) 1 mg PO DAILY [facility] Last Admin: 03/12/21 09:36 Dose: Not Given Documented by: Fondaparinux (Fondaparinux Sodium 2.5 Mg/0.5 Ml Syringe) 2.5 mg SQ DAILY [facility] Last Admin: 03/12/21 09:38 Dose: Not Given Documented by: Guaifenesin/Codeine Phosphate (Guaifenesin/Codeine 10 Ml Udc) 10 ml PO Q4HP PRN PRN Reason: Cough Potassium Chloride 40 meq/ (Dextrose) 520 mls @ 130 mls/hr IV UD PRN PRN Reason: K+ = or < 3.5 Acetaminophen (Ofirmev) 650 mg in 65 mls @ 130 mls/hr IV Q6HP PRN; Protocol PRN Reason: Per Pain Protocol/Fever > 101 Last Infusion: 03/10/21 19:29 Dose: Infused Documented by: Magnesium Sulfate (Magnesium Sulfate) 2 gm in 50 mls @ 50 mls/hr IV UD PRN PRN Reason: MG = or < 1.7 Last Infusion: 03/10/21 12:16 Dose: Infused Documented by: Iron Carb/Multivit/[employer]/Folic Acid (Multivit,Ther Iron,Ca,Fa & Min 1 Tablet) 1 tab PO DAILY [facility] Last Admin: 03/12/21 09:36 Dose: Not Given Documented by: Levothyroxine Sodium (Levothyroxine 50 Mcg Tablet) 50 mcg PO QAMAC [facility] Last Admin: 03/12/21 09:36 Dose: Not Given Documented by: Lisinopril (Lisinopril 10 Mg Tablet) 5 mg PO DAILY [facility] Last Admin: 03/12/21 09:37 Dose: Not Given Documented by: Melatonin (Melatonin 3 Mg Tablet) 3 mg PO HSP PRN PRN Reason: Insomnia Last Admin: 03/09/21 22:43 Dose: 3 mg Documented by: Ondansetron HCl (Ondansetron 4 Mg Odt Tablet) 4 mg SL Q4-6HP PRN; Protocol PRN Reason: Nausea And Vomiting Ondansetron HCl (Ondansetron 4 Mg/2 Ml Vial) 4 mg IV Q4-6HP PRN; Protocol PRN Reason: Nausea And Vomiting Last Admin: 03/09/21 00:05 Dose: 4 mg Documented by: Nystatin Ointment 1 (Dose Tube) 1 dose TOPICAL BID [facility] Last Admin: 03/12/21 09:05 Dose: 1 dose Documented by: Polyethylene Glycol (Polyethylene Glycol 3350 17 Gm Packet) 17 gm PO DAILYP PRN PRN Reason: Constipation Potassium Chloride (Potassium Chloride 20 Meq Packet) 40 meq PO DAILYP PRN PRN Reason: K+ < 3.5 Propranolol HCl (Propranolol 60 Mg Cap.Xl.24h) 60 mg PO DAILY [facility] Last Admin: 03/12/21 09:34 Dose: Not Given Documented by: Quetiapine Fumarate (Quetiapine 25 Mg Tablet) 25 mg PO DAILYP PRN PRN Reason: Agitation Last Admin: 03/11/21 10:22 Dose: 25 mg Documented by: Senna/Docusate Sodium (Sennosides/Docusate Sodium 1 Tab Tablet) 1 tab PO HS [facility] Last Admin: 03/11/21 20:55 Dose: Not Given Documented by: Sodium Chloride (0.9 % Sodium Chloride 10 Ml Syringe) 10 ml IV Q8 [facility] Last Admin: 03/12/21 05:29 Dose: 10 ml Documented by: Thiamine HCl (Thiamine 100 Mg Tablet) 100 mg PO DAILY [facility] Last Admin: 03/12/21 09:37 Dose: Not Given Documented by: A/P Narrative A/P Narrative: Assessment: 85-year-old male history of hypothyroidism, cognitive impairment presented to the ED a couple times after falls at home. Family was unable to care for the patient at home. The patient was encephalopathic on admission, COVID-19 PCR positive, soon after admission, 2 out of 2 blood cultures resulted positive for gram-positive bacteremia. The patient was started on IV Vancomycin. #COVID-19 PCR positive -nonpulmonary COVID illness vs prior infection #Persistent [id number] vs occult infection -skin pannus but does not appear like cellulitis -UA negative for UTI -Recent blood cx-NGTD -Chest xray-CHF, no infiltrates -C diff negative #Dementia with behavioral disturbances #Encephalopathy/delirium #Coagulase negative staph positive blood culture 1/2 (on 03/06)-likely skin contaminant #Diarrhea #Urine and stool incontinence #Thrombocytopenia #Generalized weakness #Resolved mild prerenal PEGGY #Hypothyroidism: stable TSH #Degenerative disc disease #Chronic tremors #Hx of cervical fusion surgery Plan -Patient refusing all cares, delirious and overall decline since admission. considering starting comfort cares. -If wants to continue aggressive care/full code will start broad spectrum antibiotics since he continues to have fevers and is declining. -Follow chest xray report. -Follow blood cultures. -Continue lisinopril -Low dose Seroquel prn. -Continue home donepezil, levothyroxine. -Discontinued scheduled bowel regimen for diarrhea. -Delirium mitigation strategies, avoid opioids/benzodiazepines/anticholinergic meds. -PT/OT -DVT ppx: fondaparinux -Code status: Full -Disposition: possible comfort care soon, currently full code. Time Spent With Patient Time: Total time spent is greater than 50% in coordination of care (as documented) at patient's floor/unit and/or counseling patient: QUALITY VTE Deep Vein Thrombosis/Pulmonary Embolism Present on Admission: No
--- NOTE | 2021-03-12 11:12 | XRay Report ---
HISTORY: Follow-up pulmonary congestion FINDINGS: The heart is enlarged and may have increased in size a small amount since yesterday. The pulmonary vascular markings remain prominent throughout both lung dwyer. There is no consolidating infiltrate or pleural effusion. The mediastinum and hilar normal. IMPRESSION: Persistent cardiomegaly with pulmonary vascular congestion. Superimposed inflammation cannot be excluded. Interpreted and Authenticated by: Aureliano Laboy 03/12/21
[2021-03-12] MEDS ORDERED: ONDANSETRON 4 MG ODT TABLET SL PRN (12:09)
[2021-03-12] MEDS ORDERED: ONDANSETRON 4 MG/2 ML VIAL IV PRN (12:09)
[2021-03-12] MEDS ORDERED: morphine 4 MG/ML VIAL IV PRN (12:09)
[2021-03-12] MEDS ORDERED: ALBUTEROL SULFATE 2.5 MG/3 ML NEBULIZER NEB PRN (12:09)
[2021-03-12] MEDS ORDERED: ATROPINE 1% OPHTH DROPS 2ML BOTTLE SL PRN (12:09)
[2021-03-12] MEDS: LORazepam 2 MG/ML VIAL IV PRN ×2 (12:18→17:49)
--- NOTE | 2021-03-12 13:05 | Internal Med Progress Note ---
SUBJECTIVE Subjective Patient information: Note initiated : 03/12/21 at 1:03 pm Service Date, if different from initiated Date: [] Patient: Ralf Galicia a 85 y/o M admitted on 03/07/21 for fall. Chief Complaint: [] Interval history: Mr. Galicia is a 85 year old M with history of dementia/hypothyroidism who lives with his ailing on hemodialysis. Patient presented to the ER this morning he fell out of bed and family was unable to help him. 911 was called. Initial work-up was consistent with severe weakness/confused state. Most of the history was obtained from patient's family and EMS. Initial investigations were unremarkable including CT chest abdomen pelvis/spine and head, normal white count however elevated BUN consistent with volume depletion. COVID-19 positive without hypoxia or chest infiltrates. Patient was started on crystalloids. Despite recommendations by ER physician for observation admission family insisted on discharging patient home. Within an hour of reaching home patient again fell out of bed and presents back to the ER. Following acute evaluation hospitalist service was consulted after case management recommended hospitalization until a safe discharge plan is available. He is notably confused and mumbling unable to provide any history. endorses to history as above. She felt that her self and her family is in no capacity to take care of his needs and would like him to be placed at a facility. On a quick exam there is extensive excoriation along with erythema around the pannus folds/lateral thigh and back. Patient is involuntary tremor noted in both upper extremity 03/07-2/2+ blood culture for gram-positive cocci. Repeat surveillance cultures pending. Echocardiogram ordered. ID consulted. Started vancomycin. Covid positive. Remains encephalopathic and confused. Renal function improving. 03/08-patient remains confused and agitated requiring Ativan. Requiring 3 person assist. Platelets downtrending. Switch to Arixtra. White count 7.2. Currently on room air. Tolerating diet. ID consulted. Await echocardiogram. 03/09-started low dose seroquel for agitation, discontinued ativan. Agitation improved after receiving seroquel. Awaiting culture results and ECHO. 03/10-reviewed all blood cultures showing 1/2 positive cultures on 03/06 for coag negative staph which is probably a contaminant. Discussed with ID, recommended that we could discontinue Vancomycin IV now. Started lisinopril for elevated blood pressure. Trial of Sinemet for tremors seems to have benefited the patient-tremors could be from Parkinson's disease however the patient will need to see neurology after discharge for a formal evaluation. 03/11-intermittent fevers, repeated blood cultures, UA, chest xray-increasing pulmonary congestion, CRP 3.6. Fevers could be d/t COVID. No hypoxia and chest xray does not show typical COVID opacities. Lasix IV started. ECHO report available LV EF 60-65%, unable to assess diastolic function, normal RV function, no severe valvulopathy. Discussed goals of care with the patient's , continue full code for now. She will discuss with other family members. Disc ontinued Sinemet trial as not effective for reducing tremors, will trial propranolol for possible essential tremor. Considering Swing bed status. 03/12-patient declining all cares, overall seems to be progressively worsening, refused blood cultures for persistent fevers of unknown cause. UA negative for UTI, recent blood cultures showing no growth to date, repeated chest xray today. Updated the patient's , she is considering comfort care. *I spoke with the patient's , she would like comfort care orders started. 03/13 Constitutional Vitals: Vital Signs Temp Pulse Resp BP Pulse Ox 97.7 F 67 20 130/45 93 03/12/21 12:00 03/12/21 12:00 03/12/21 12:00 03/12/21 12:00 03/12/21 12:00 Period Temp Pulse Resp BP Sys/Truong Pulse Ox Last 24 Hr 97.4 F-100.5 F 66-80 20-30 124-180/45-102 92-100 Intake and Output 03/11/21 03/12/21 03/12/21 21:59 05:59 13:59 Output Total 1760 3 Balance -1760 -3 Weight 99.989 kg Intake & Output: Intake & Output 03/11/21 03/12/21 03/12/21 21:59 05:59 13:59 Output Total 1760 3 Balance -1760 -3 Weight 99.989 kg Output: Void Amount 1750 # of times incontinent of urine 10 3 Other: Urine Appearance Clear Urine Color Bright Yellow Straw Urine Odor Normal Stool Size Moderate Small Stool Color Brown Brown Brown Green Stool Consistency Liquid Loose Liquid Loose # Voids 1 # Bowel Movements 1 # of times incontinent of 1 1 1 Bowels Exam: General: Alert, Awake, No acute Distress Eyes/N/T: EOMI, Head/Neck: neck supple, CV: RRR, No murmurs, Pulm: Clear b/l, no wheezing/rhonchi/rales Abd: soft, nontender, +BS x4 Ext: no clubbing/cyanosis/edema Neuro: Alert, no focal deficits, moves all extremities, Skin: warm/dry psych: impaired cognition, h/o dementia OBJ DATA Labs CBC & Chem 7: 03/12/21 06:24 03/12/21 06:23 Labs: Abnormal Lab Results 03/12/21 03/12/21 03/11/21 06:24 06:23 15:00 WBC 4.4 L RBC MCHC Plt Count 116 L MPV 12.4 H Lymph # (Auto) Band Neutrophils % 18 H Reactive Lymphocytes 5 H Platelet Estimate Decreased A Sodium 131 L Anion Gap 7.0 L Glucose Calcium 8.5 L Phosphorus AST 42 H Lactate Dehydrogenase 336 H C-Reactive Protein 5.90 H Total Protein Albumin Urine Appearance Hazy A Urine Protein 30 A Urine Mucus Few A 03/11/21 03/11/21 03/11/21 07:48 07:48 06:06 WBC 3.8 L RBC MCHC 30.9 L Plt Count 92 L MPV 11.8 H Lymph # (Auto) 0.73 L Band Neutrophils % Reactive Lymphocytes Platelet Estimate Sodium Anion Gap 6.0 L Glucose 106 H Calcium 8.4 L Phosphorus 2.3 L AST 40 H Lactate Dehydrogenase 335 H C-Reactive Protein 3.60 H Total Protein Albumin Urine Appearance Urine Protein Urine Mucus 03/10/21 03/10/21 08:08 05:43 WBC 4.1 L RBC 4.49 L MCHC Plt Count 108 L MPV 11.7 H Lymph # (Auto) 0.75 L Band Neutrophils % Reactive Lymphocytes Platelet Estimate Sodium Anion Gap 6.0 L Glucose Calcium 8.4 L Phosphorus 2.4 L AST Lactate Dehydrogenase 279 H C-Reactive Protein Total Protein 5.8 L Albumin 3.1 L Urine Appearance Urine Protein Urine Mucus Meds: Medications Albuterol Sulfate (Albuterol Sulfate 2.5 Mg/3 Ml Nebulizer) 2.5 mg NEB Q2HP PRN PRN Reason: Shortness Of Breath Atropine Sulfate (Atropine 1% Ophth Drops 2ml Bottle) 1 gtt SL Q2HP PRN PRN Reason: Secretions Lorazepam (Lorazepam 2 Mg/Ml Vial) 0 mg IV Q1HP PRN; Protocol PRN Reason: ANXIETY/SEDATION Last Admin: 03/12/21 12:18 Dose: 2 mg Documented by: Morphine Sulfate (Morphine 4 Mg/Ml Vial) 2 - 6 mg IV Q1HP PRN; Protocol PRN Reason: Per Pain Protocol Ondansetron HCl (Ondansetron 4 Mg Odt Tablet) 4 mg SL Q4HP PRN; Protocol PRN Reason: Nausea And Vomiting Ondansetron HCl (Ondansetron 4 Mg/2 Ml Vial) 4 mg IV Q4HP PRN; Protocol PRN Reason: Nausea And Vomiting Sodium Chloride (0.9 % Sodium Chloride 10 Ml Syringe) 10 ml IV Q8 DEYANIRA A/P Narrative A/P Narrative: A: #COVID-19 PCR positive -nonpulmonary COVID illness vs prior infection #Persistent [id number] vs occult infection -skin pannus but does not appear like cellulitis -UA negative for UTI -Recent blood cx-NGTD -Chest xray-CHF, no infiltrates -C diff negative #Dementia with behavioral disturbances #Encephalopathy/delirium #Coagulase negative staph positive blood culture 1/2 (on 03/06)-likely skin contaminant #Diarrhea #Urine and stool incontinence #Thrombocytopenia #Generalized weakness #Resolved mild prerenal PEGGY #Hypothyroidism: stable TSH #Degenerative disc disease #Chronic tremors #Hx of cervical fusion surgery Plan: -transitioned to comfort care only -pt and family support -if remains stable then d/c to SNF Time Spent With Patient Time: Total time spent is greater than 50% in coordination of care (as documented) at patient's floor/unit and/or counseling patient: QUALITY VTE Deep Vein Thrombosis/Pulmonary Embolism Present on Admission: No
[2021-03-13] MEDS: LORazepam 2 MG/ML VIAL IV PRN ×3 (02:35→10:14)
--- NOTE | 2021-03-13 07:29 | Internal Med Progress Note ---
SUBJECTIVE Subjective Patient information: Note initiated : 03/13/21 at 7:28 am Service Date, if different from initiated Date: [] Patient: Ralf Galicia a 85 y/o M admitted on 03/07/21 for fall. Chief Complaint: [] Interval history: Mr. Galicia is a 85 year old M with history of dementia/hypothyroidism who lives with his ailing on hemodialysis. Patient presented to the ER this morning he fell out of bed and family was unable to help him. 911 was called. Initial work-up was consistent with severe weakness/confused state. Most of the history was obtained from patient's family and EMS. Initial investigations were unremarkable including CT chest abdomen pelvis/spine and head, normal white count however elevated BUN consistent with volume depletion. COVID-19 positive without hypoxia or chest infiltrates. Patient was started on crystalloids. Despite recommendations by ER physician for observation admission family insisted on discharging patient home. Within an hour of reaching home patient again fell out of bed and presents back to the ER. Following acute evaluation hospitalist service was consulted after case management recommended hospitalization until a safe discharge plan is available. He is notably confused and mumbling unable to provide any history. endorses to history as above. She felt that her self and her family is in no capacity to take care of his needs and would like him to be placed at a facility. On a quick exam there is extensive excoriation along with erythema around the pannus folds/lateral thigh and back. Patient is involuntary tremor noted in both upper extremity 03/07-2/2+ blood culture for gram-positive cocci. Repeat surveillance cultures pending. Echocardiogram ordered. ID consulted. Started vancomycin. Covid positive. Remains encephalopathic and confused. Renal function improving. 03/08-patient remains confused and agitated requiring Ativan. Requiring 3 person assist. Platelets downtrending. Switch to Arixtra. White count 7.2. Currently on room air. Tolerating diet. ID consulted. Await echocardiogram. 03/09-started low dose seroquel for agitation, discontinued ativan. Agitation improved after receiving seroquel. Awaiting culture results and ECHO. 03/10-reviewed all blood cultures showing 1/2 positive cultures on 03/06 for coag negative staph which is probably a contaminant. Discussed with ID, recommended that we could discontinue Vancomycin IV now. Started lisinopril for elevated blood pressure. Trial of Sinemet for tremors seems to have benefited the patient-tremors could be from Parkinson's disease however the patient will need to see neurology after discharge for a formal evaluation. 03/11-intermittent fevers, repeated blood cultures, UA, chest xray-increasing pulmonary congestion, CRP 3.6. Fevers could be d/t COVID. No hypoxia and chest xray does not show typical COVID opacities. Lasix IV started. ECHO report available LV EF 60-65%, unable to assess diastolic function, normal RV function, no severe valvulopathy. Discussed goals of care with the patient's , continue full code for now. She will discuss with other family members. Disc ontinued Sinemet trial as not effective for reducing tremors, will trial propranolol for possible essential tremor. Considering Swing bed status. 03/12-patient declining all cares, overall seems to be progressively worsening, refused blood cultures for persistent fevers of unknown cause. UA negative for UTI, recent blood cultures showing no growth to date, repeated chest xray today. Updated the patient's , she is considering comfort care. *I spoke with the patient's , she would like comfort care orders started. 03/13 Patient poorly responsive this morning. Eyes closed. Nonverbal. Unable to gather review of systems given mentation. Constitutional Vitals: Vital Signs Temp Pulse Resp BP Pulse Ox 97.9 F 75 22 148/46 90 03/12/21 18:39 03/12/21 18:39 03/12/21 18:39 03/12/21 18:39 03/12/21 18:39 Period Temp Pulse Resp BP Sys/Truong Pulse Ox Last 24 Hr 97.4 F-97.9 F 67-75 20-22 130-148/45-46 90-93 Intake and Output 03/12/21 03/13/21 03/13/21 21:59 05:59 13:59 Intake Total 0 0 Output Total 1 1 Balance -1 -1 Weight 99.989 kg Intake & Output: Intake & Output 03/12/21 03/13/21 03/13/21 21:59 05:59 13:59 Intake Total 0 0 Output Total 1 1 Balance -1 -1 Weight 99.989 kg Intake: Oral 0 0 Output: # of times incontinent of urine 1 1 Other: Meal Lunch Percent of Meal Consumed Refused Feeding Ability Total Assistance # Bowel Movements 1 Exam: General: No acute Distress Eyes/N/T: Head/Neck: neck supple, CV: RRR, No murmurs, Pulm: Clear b/l, no wheezing/rhonchi/rales Abd: soft, nontender, +BS x4 Ext: no clubbing/cyanosis/edema Neuro: no focal deficits, moves all extremities, Skin: warm/dry psych: impaired cognition, h/o dementia OBJ DATA Labs CBC & Chem 7: 03/12/21 06:24 03/12/21 06:23 Labs: Abnormal Lab Results 03/12/21 03/12/21 03/11/21 06:24 06:23 15:00 WBC 4.4 L RBC MCHC Plt Count 116 L MPV 12.4 H Lymph # (Auto) Band Neutrophils % 18 H Reactive Lymphocytes 5 H Platelet Estimate Decreased A Sodium 131 L Anion Gap 7.0 L Glucose Calcium 8.5 L Phosphorus AST 42 H Lactate Dehydrogenase 336 H C-Reactive Protein 5.90 H Total Protein Albumin Urine Appearance Hazy A Urine Protein 30 A Urine Mucus Few A 03/11/21 03/11/21 03/11/21 07:48 07:48 06:06 WBC 3.8 L RBC MCHC 30.9 L Plt Count 92 L MPV 11.8 H Lymph # (Auto) 0.73 L Band Neutrophils % Reactive Lymphocytes Platelet Estimate Sodium Anion Gap 6.0 L Glucose 106 H Calcium 8.4 L Phosphorus 2.3 L AST 40 H Lactate Dehydrogenase 335 H C-Reactive Protein 3.60 H Total Protein Albumin Urine Appearance Urine Protein Urine Mucus 03/10/21 03/10/21 08:08 05:43 WBC 4.1 L RBC 4.49 L MCHC Plt Count 108 L MPV 11.7 H Lymph # (Auto) 0.75 L Band Neutrophils % Reactive Lymphocytes Platelet Estimate Sodium Anion Gap 6.0 L Glucose Calcium 8.4 L Phosphorus 2.4 L AST Lactate Dehydrogenase 279 H C-Reactive Protein Total Protein 5.8 L Albumin 3.1 L Urine Appearance Urine Protein Urine Mucus Meds: Medications Albuterol Sulfate (Albuterol Sulfate 2.5 Mg/3 Ml Nebulizer) 2.5 mg NEB Q2HP PRN PRN Reason: Shortness Of Breath Atropine Sulfate (Atropine 1% Ophth Drops 2ml Bottle) 1 gtt SL Q2HP PRN PRN Reason: Secretions Lorazepam (Lorazepam 2 Mg/Ml Vial) 0 mg IV Q1HP PRN; Protocol PRN Reason: ANXIETY/SEDATION Last Admin: 03/13/21 02:35 Dose: 2 mg Documented by: Morphine Sulfate (Morphine 4 Mg/Ml Vial) 2 - 6 mg IV Q1HP PRN; Protocol PRN Reason: Per Pain Protocol Ondansetron HCl (Ondansetron 4 Mg Odt Tablet) 4 mg SL Q4HP PRN; Protocol PRN Reason: Nausea And Vomiting Ondansetron HCl (Ondansetron 4 Mg/2 Ml Vial) 4 mg IV Q4HP PRN; Protocol PRN Reason: Nausea And Vomiting Sodium Chloride (0.9 % Sodium Chloride 10 Ml Syringe) 10 ml IV Q8 DEYANIRA Last Admin: 03/12/21 20:15 Dose: 10 ml Documented by: A/P Narrative A/P Narrative: A: #COVID-19 PCR positive -nonpulmonary COVID illness vs prior infection #Persistent [id number] vs occult infection -skin pannus but does not appear like cellulitis -UA negative for UTI -Recent blood cx-NGTD -Chest xray-CHF, no infiltrates -C diff negative #Dementia with behavioral disturbances #Encephalopathy/delirium #Coagulase negative staph positive blood culture 1/2 (on 03/06)-likely skin cont aminant #Diarrhea #Urine and stool incontinence #Thrombocytopenia #Generalized weakness #Resolved mild prerenal PEGGY #Hypothyroidism: stable TSH #Degenerative disc disease #Chronic tremors #Hx of cervical fusion surgery Plan: -transitioned to comfort care only -pt and family support -if remains stable then d/c to SNF Time Spent With Patient Time: Total time spent is greater than 50% in coordination of care (as documented) at patient's floor/unit and/or counseling patient: QUALITY VTE Deep Vein Thrombosis/Pulmonary Embolism Present on Admission: No
[2021-03-13] MEDS: 0.9 % SODIUM CHLORIDE 10 ML SYRINGE IV SCH ×3 (09:06→21:35)
--- NOTE | 2021-03-13 09:55 | Discharge Summary ---
Discharge Provider Provider Patient information: Note initiated : 03/13/21 at 9:54 am Service Date, if different from initiated Date: [] Patient: Ralf Galicia 85 y/o M admitted on 03/07/21 for fall. Chief Complaint: [] Date of admission: 03/07/21 18:00 Discharge date: 03/15/21 Primary care physician: Mihaela Thomas Consults: 03/06/21 Consult to Physician [CONS] Stat Comment: Consulting Provider: Danny Mcclelland Reason For Exam: Physician to Consult 03/07/21 08:33 Consult to Physician [CONS] Routine Comment: Consulting Provider: Jerry Bates Reason For Exam: Physician to Consult Discharge Meds Discharge Medications Home Medications hydrocodone 10 mg-acetaminophen 325 mg tablet 1 tab PO Q8HP PRN #90 tab 02/25/21 [Rx Confirmed 03/06/21 Last Taken 03/05/21] hyoscyamine sulfate [Levsin/SL] 0.125 mg SUBLINGUAL QID #10 tab 03/13/21 [Rx Last Taken Unknown] lorazepam 1 mg BUCCAL Q2HP PRN #30 ml 03/13/21 [Rx Last Taken Unknown] morphine 5 mg PO Q1HP PRN #100 ml 03/13/21 [Rx Last Taken Unknown] ondansetron HCl [Zofran] 4 mg PO Q6H PRN #20 tab 03/13/21 [Rx Last Taken Unknown] COURSE Hospital Course Hospital course: Interval history: Mr. Galicia is a 85 year old M with history of dementia/hypothyroidism who lives with his ailing on hemodialysis. Patient presented to the ER this morning he fell out of bed and family was unable to help him. 911 was called. Initial work-up was consistent with severe weakness/confused state. Most of the history was obtained from patient's family and EMS. Initial investigations were unremarkable including CT chest abdomen pelvis/spine and head, normal white count however elevated BUN consistent with volume depletion. COVID-19 positive without hypoxia or chest infiltrates. Patient was started on crystalloids. Despite recommendations by ER physician for observation admission family insisted on discharging patient home. Within an hour of reaching home patient again fell out of bed and presents back to the ER. Following acute evaluation hospitalist service was consulted after case management recommended hospitalization until a safe discharge plan is available. He is notably confused and mumbling unable to provide any history. endorses to history as above. She felt that her self and her family is in no capacity to take care of his needs and would like him to be placed at a facility. On a quick exam there is extensive excoriation along with erythema around the pannus folds/lateral thigh and back. Patient is involuntary tremor noted in both upper extremity 03/07-2/2+ blood culture for gram-positive cocci. Repeat surveillance cultures pending. Echocardiogram ordered. ID consulted. Started vancomycin. Covid positive. Remains encephalopathic and confused. Renal function improving. 03/08-patient remains confused and agitated requiring Ativan. Requiring 3 person assist. Platelets downtrending. Switch to Arixtra. White count 7.2. Currently on room air. Tolerating diet. ID consulted. Await echocardiogram. 03/09-started low dose seroquel for agitation, discontinued ativan. Agitation improved after receiving seroquel. Awaiting culture results and ECHO. 03/10-reviewed all blood cultures showing 1/2 positive cultures on 03/06 for coag negative staph which is probably a contaminant. Discussed with ID, recommended that we could discontinue Vancomycin IV now. Started lisinopril for elevated blood pressure. Trial of Sinemet for tremors seems to have benefited the patient-tremors could be from Parkinson's disease however the patient will need to see neurology after discharge for a formal evaluation. 03/11-intermittent fevers, repeated blood cultures, UA, chest xray-increasing pulmonary congestion, CRP 3.6. Fevers could be d/t COVID. No hypoxia and chest xray does not show typical COVID opacities. Lasix IV started. ECHO report available LV EF 60-65%, unable to assess diastolic function, normal RV function, no severe valvulopathy. Discussed goals of care with the patient's , continue full code for now. She will discuss with other family members. Discontinued Sinemet trial as not effective for reducing tremors, will trial propranolol for possible essential tremor. Considering Swing bed status. 03/12-patient declining all cares, overall seems to be progressively worsening, refused blood cultures for persistent fevers of unknown cause. UA negative for UTI, recent blood cultures showing no growth to date, repeated chest xray today. Updated the patient's , she is considering comfort care. *I spoke with the patient's , she would like comfort care orders started. 03/13 Patient poorly responsive this morning. Eyes closed. Nonverbal. 03/14 No change overnight. Poorly responsive. Nonverbal. Awaiting placement. 03/15 No change. Home with hospice. A: #COVID-19 PCR positive -nonpulmonary COVID illness vs prior infection #Persistent [id number] vs occult infection -skin pannus but does not appear like cellulitis -UA negative for UTI -Recent blood cx-NGTD -Chest xray-CHF, no infiltrates -C diff negative #Dementia with behavioral disturbances #Encephalopathy/delirium #Coagulase negative staph positive blood culture / (on 03/06)-likely skin contaminant #Diarrhea #Urine and stool incontinence #Thrombocytopenia #Generalized weakness #Resolved mild prerenal PEGGY #Hypothyroidism: stable TSH #Degenerative disc disease #Chronic tremors #Hx of cervical fusion surgery Discharge diagnosis: COVID-19 syndrome fevers dementia encephalopathy Secondary discharge diagnosis: Diarrhea urine and stool incontinence thrombocytopenia generalized weakness PEGGY hypothyroidism chronic tremors Time Spent with Patient Time attestation: Total time spent providing and/or coordinating discharge services: Time spent: Greater than 30 minutes EXAM Constitutional Vitals: Temp Pulse Resp BP Pulse Ox 98.1 F 76 28 H 134/84 90 03/13/21 07:53 03/13/21 07:53 03/13/21 07:53 03/13/21 07:53 03/12/21 18:39 Discharge Data Data Completed and Pending Labs on day of discharge: Preliminary micro results at discharge 03/11/21 12:00 Blood Culture - Preliminary Blood Discharge Plan Patient/Caregiver Discharge Instructions Activity: increase activity as tolerated Diet: Regular Diet Prescriptions: New lorazepam 2 mg/mL concentrate 1 mg buccal Q2HP PRN (Reason: agitation) Qty: 30 RF: 0 ondansetron HCl [Zofran] 4 mg tablet 4 mg PO Q6H PRN (Reason: nausea and vomiting) Qty: 20 RF: 0 hyoscyamine sulfate [Levsin/SL] 0.125 mg tablet, sublingual 0.125 mg sublingual QID Qty: 10 RF: 0 morphine 10 mg/5 mL solution 5 mg PO Q1HP PRN (Reason: pain) Qty: 100 RF: 0 Continued hydrocodone-acetaminophen 10-325 mg tablet 1 tab PO Q8HP PRN (Reason: Pain) Qty: 90 RF: 0 Discontinued levothyroxine 50 mcg tablet 50 mcg PO DAILY Qty: 90 RF: 1 donepezil [Aricept] 10 mg tablet 10 mg PO QDAY Qty: 30 RF: 2 nystatin 100,000 unit/gram ointment 1 applic topical BID Qty: 30 RF: 0 Follow Up Plan Follow up with: Mihaela Thomas ARNP [Primary Care Provider] - Patient Disposition: Hospice - Home Prognosis: Serious I certify that the patient requires SNF services: Yes Overall status at discharge: patient is not back to baseline Discharge Orders: Discharge Order (Routine); Ordered 03/15/21 [facility]/Pulmonary Embolism Present on Admission: No
[2021-03-13] MEDS ORDERED: LORazepam 1 MG TABLET SL PRN (12:06)
[2021-03-13] MEDS ORDERED: ONDANSETRON 4 MG ODT TABLET SL PRN (12:06)
[2021-03-14] MEDS: 0.9 % SODIUM CHLORIDE 10 ML SYRINGE IV SCH ×2 (05:28→13:28)
[2021-03-14] MEDS: morphine 20 MG/ML ORAL.CONC SL PRN ×3 (07:25→20:13)
--- NOTE | 2021-03-14 10:25 | Internal Med Progress Note ---
SUBJECTIVE Subjective Patient information: Note initiated : 03/14/21 at 10:24 am Service Date, if different from initiated Date: [] Patient: Ralf Galicia a 85 y/o M admitted on 03/07/21 for fall. Chief Complaint: [] Interval history: Mr. Galicia is a 85 year old M with history of dementia/hypothyroidism who lives with his ailing on hemodialysis. Patient presented to the ER this morning he fell out of bed and family was unable to help him. 911 was called. Initial work-up was consistent with severe weakness/confused state. Most of the history was obtained from patient's family and EMS. Initial investigations were unremarkable including CT chest abdomen pelvis/spine and head, normal white count however elevated BUN consistent with volume depletion. COVID-19 positive without hypoxia or chest infiltrates. Patient was started on crystalloids. Despite recommendations by ER physician for observation admission family insisted on discharging patient home. Within an hour of reaching home patient again fell out of bed and presents back to the ER. Following acute evaluation hospitalist service was consulted after case management recommended hospitalization until a safe discharge plan is available. He is notably confused and mumbling unable to provide any history. endorses to history as above. She felt that her self and her family is in no capacity to take care of his needs and would like him to be placed at a facility. On a quick exam there is extensive excoriation along with erythema around the pannus folds/lateral thigh and back. Patient is involuntary tremor noted in both upper extremity 03/07-2/2+ blood culture for gram-positive cocci. Repeat surveillance cultures pending. Echocardiogram ordered. ID consulted. Started vancomycin. Covid positive. Remains encephalopathic and confused. Renal function improving. 03/08-patient remains confused and agitated requiring Ativan. Requiring 3 person assist. Platelets downtrending. Switch to Arixtra. White count 7.2. Currently on room air. Tolerating diet. ID consulted. Await echocardiogram. 03/09-started low dose seroquel for agitation, discontinued ativan. Agitation improved after receiving seroquel. Awaiting culture results and ECHO. 03/10-reviewed all blood cultures showing 1/2 positive cultures on 03/06 for coag negative staph which is probably a contaminant. Discussed with ID, recommended that we could discontinue Vancomycin IV now. Started lisinopril for elevated blood pressure. Trial of Sinemet for tremors seems to have benefited the patient-tremors could be from Parkinson's disease however the patient will need to see neurology after discharge for a formal evaluation. 03/11-intermittent fevers, repeated blood cultures, UA, chest xray-increasing pulmonary congestion, CRP 3.6. Fevers could be d/t COVID. No hypoxia and chest xray does not show typical COVID opacities. Lasix IV started. ECHO report available LV EF 60-65%, unable to assess diastolic function, normal RV function, no severe valvulopathy. Discussed goals of care with the patient's , continue full code for now. She will discuss with other family members. Dis continued Sinemet trial as not effective for reducing tremors, will trial propranolol for possible essential tremor. Considering Swing bed status. 03/12-patient declining all cares, overall seems to be progressively worsening, refused blood cultures for persistent fevers of unknown cause. UA negative for UTI, recent blood cultures showing no growth to date, repeated chest xray today. Updated the patient's , she is considering comfort care. *I spoke with the patient's , she would like comfort care orders started. 03/13 Patient poorly responsive this morning. Eyes closed. Nonverbal. 03/14 No change overnight. Poorly responsive. Nonverbal Unable to gather review of systems given mentation. Constitutional Vitals: Vital Signs Temp Pulse Resp BP Pulse Ox 97.4 F 79 22 149/74 88 L 03/14/21 07:58 03/13/21 20:00 03/14/21 07:58 03/14/21 07:58 03/13/21 20:00 Period Temp Pulse Resp BP Sys/Truong Pulse Ox Last 24 Hr 97.4 F-98 F 79 22-24 77-149/36-74 88 Intake and Output 03/13/21 03/14/21 03/14/21 21:59 05:59 13:59 Output Total 2 4 1 Balance -2 -4 -1 Weight 99.365 kg Intake & Output: Intake & Output 03/13/21 03/14/21 03/14/21 21:59 05:59 13:59 Output Total 2 4 1 Balance -2 -4 -1 Weight 99.365 kg Output: # of times incontinent of urine 2 4 1 Other: Stool Size Small Smear Stool Color Brown Green Stool Consistency Loose # Voids 2 # Bowel Movements 1 1 # of times incontinent of 1 3 Bowels Exam: General: No acute Distress Eyes/N/T: Head/Neck: neck supple, CV: RRR, No murmurs, Pulm: Clear b/l, no wheezing/rhonchi/rales Abd: soft, nontender, +BS x4 Ext: no clubbing/cyanosis/edema Neuro: no focal deficits, moves all extremities spontaneously, responds to touch all extremities Skin: warm/dry psych: impaired cognition, h/o dementia OBJ DATA Labs CBC & Chem 7: 03/12/21 06:24 03/12/21 06:23 Labs: Abnormal Lab Results 03/12/21 03/12/21 03/11/21 06:24 06:23 15:00 WBC 4.4 L Plt Count 116 L MPV 12.4 H Band Neutrophils % 18 H Reactive Lymphocytes 5 H Platelet Estimate Decreased A Sodium 131 L Anion Gap 7.0 L Calcium 8.5 L AST 42 H Lactate Dehydrogenase 336 H C-Reactive Protein 5.90 H Urine Appearance Hazy A Urine Protein 30 A Urine Mucus Few A 03/11/21 07:48 WBC Plt Count MPV Band Neutrophils % Reactive Lymphocytes Platelet Estimate Sodium Anion Gap Calcium AST Lactate Dehydrogenase C-Reactive Protein 3.60 H Urine Appearance Urine Protein Urine Mucus Meds: Medications Albuterol Sulfate (Albuterol Sulfate 2.5 Mg/3 Ml Nebulizer) 2.5 mg NEB Q2HP PRN PRN Reason: Shortness Of Breath Atropine Sulfate (Atropine 1% Ophth Drops 2ml Bottle) 1 gtt SL Q2HP PRN PRN Reason: Secretions Lorazepam (Lorazepam 2 Mg/Ml Vial) 0 mg IV Q1HP PRN; Protocol PRN Reason: ANXIETY/SEDATION Last Admin: 03/13/21 10:14 Dose: 2 mg Documented by: Lorazepam (Lorazepam 1 Mg Tablet) 1 mg SL Q2HP PRN PRN Reason: Anxiety Last Admin: 03/13/21 15:21 Dose: 1 mg Documented by: Morphine Sulfate (Morphine 4 Mg/Ml Vial) 2 - 6 mg IV Q1HP PRN; Protocol PRN Reason: Per Pain Protocol Morphine Sulfate (Morphine 20 Mg/Ml Oral.Conc) 5 - 10 mg SL Q2HP PRN; Protocol PRN Reason: Per Pain Protocol Last Admin: 03/14/21 07:25 Dose: 5 mg Documented by: Ondansetron HCl (Ondansetron 4 Mg Odt Tablet) 4 mg SL Q4HP PRN; Protocol PRN Reason: Nausea And Vomiting Ondansetron HCl (Ondansetron 4 Mg/2 Ml Vial) 4 mg IV Q4HP PRN; Protocol PRN Reason: Nausea And Vomiting Sodium Chloride (0.9 % Sodium Chloride 10 Ml Syringe) 10 ml IV Q8 DEYANIRA Last Admin: 03/14/21 05:28 Dose: Not Given Documented by: A/P Narrative A/P Narrative: A: #COVID-19 PCR positive -nonpulmonary COVID illness vs prior infection #Persistent [id number] vs occult infection. RESolved -skin pannus but does not appear like cellulitis -UA negative for UTI -Recent blood cx-NGTD -Chest xray-CHF, no infiltrates -C diff negative #Dementia with behavioral disturbances #Encephalopathy/delirium #Coagulase negative staph positive blood culture 1/2 (on 03/06)-likely skin contaminant #Diarrhea #Urine and stool incontinence #Thrombocytopenia #Generalized weakness #Resolved mild prerenal PEGGY #Hypothyroidism: stable TSH #Degenerative disc disease #Chronic tremors #Hx of cervical fusion surgery Plan: -transitioned to comfort care only -pt and family support -awaiting placement Time Spent With Patient Time: Total time spent is greater than 50% in coordination of care (as documented) at patient's floor/unit and/or counseling patient: QUALITY VTE Deep Vein Thrombosis/Pulmonary Embolism Present on Admission: No
[2021-03-15] MEDS: morphine 20 MG/ML ORAL.CONC SL PRN ×3 (00:04→09:27)
[2021-03-15] MEDS: 0.9 % SODIUM CHLORIDE 10 ML SYRINGE IV SCH ×2 (00:06→04:53)
[2021-03-15] MEDS: LORazepam 2 MG/ML ORAL.SOL PO PRN ×2 (00:56→04:53)
== END 2021-03-15 10:50 | disposition hospice, home (50) | DRG 178 ==
LOC: MEDSUR 14:09 → ED 14:09 → MEDSUR 17:19
PROVIDERS: ADMIT Internal Medicine; ATTEND Internal Medicine